=== PATIENT | male | born 1940 | race Caucasian/White ===

== ENCOUNTER 2018-07-19 05:04 | Emergency (ER) | payer MEDICARE, BC, SELFPAY ==
--- NOTE | 2018-07-19 05:17 | DI.RAD.S_ITS ---
PROCEDURE: XR CHEST 1V INDICATIONS: chest pain TECHNIQUE: One view of the chest was acquired. COMPARISON: None. FINDINGS: Surgical changes and devices: Sternal wires are present. Lungs and pleura: There is increased pulmonary vascularity. Coarsened bibasilar and retrocardiac opacities are present. Mediastinum: Mediastinal contours appear normal. Heart size is normal. Bones and chest wall: No suspicious bony lesions. Overlying soft tissues appear unremarkable. IMPRESSION: Increased vascularity suggestive of edema. Increased appearance of coarsened bibasilar retrocardiac opacities are also noted. While this could represent focal edema, developing areas of airspace disease such as pneumonia cannot be excluded. They both enter discussed with Dr. Cordell Zapata on 07/19/18 at 9:30 a.m. Dictated by: Mary Lou Pimentel M.D. on 07/19/2018 at 9:27 Approved by: Mary Lou Pimentel M.D. on 07/19/2018 at 9:30
--- NOTE | 2018-07-19 05:18 | ED.CHESTPAIN ---
HPI - Chest Pain General Chief Complaint: Chest Pain Stated Complaint: Chest Pain, feels like heartburn Time Seen by Provider: 07/19/18 05:17 Source: patient Mode of arrival: ambulatory Limitations: no limitations History of Present Illness HPI narrative: Patient is an 78-year-old male with history of coronary artery disease triple bypass in 2004 hypertension hyperlipidemia presenting with chest discomfort. He said it woke him from his sleep he thought it was indigestion took some Geeta-[place] did not really help that he took 2 nitroglycerin and came to the emergency department. He said his pain has overall improved but still has some. He has no shortness of breath nausea not diaphoretic. Pain was not radiating state in the nervous chest MD complaint: chest pain Onset (ago): minute(s) Duration: constant Onset: during rest Pain location: substernal Related Data Allergies Allergy/AdvReac Type Severity Reaction Status Date / Time morphine Allergy Unknown Verified 07/19/18 05:24 oxycodone Allergy Verified 07/19/18 05:25 Review of Systems Review of Systems GENERAL: Denies chills, fatigue, malaise, fever, sweats, travel HEENT: Denies sinus pain, ear pain, sore throat, difficulty swallowing, neck pain RESPIRATORY: Denies dyspnea, cough, wheezing, hemoptysis, sputum. CARDIOVASCULAR: See HPI GASTROINTESTINAL: Denies nausea, vomiting, abdominal pain, diarrhea, constipation, melena. : Denies dysuria, frequency, incontinence, hematuria, urinary retention, flank pain. MUSCULOSKELETAL: Denies weakness, joint pain, or bony pain SKIN: No rash, no erythema, no pruritus NEUROLOGIC: Denies weakness, dizziness, headache, numbness, change in speech, confusion PSYCHIATRIC: No concerning psychosocial issues. 12 point review of systems is negative except for those stated above and HPI [facility]LY [facility] Medical History (Updated 07/19/18 @ 06:25 by Hawa Araiza DO) Coronary artery disease (Acute) Hyperlipidemia (Acute) Hypertension (Acute) Surgical History (Updated 07/19/18 @ 05:20 by Hawa Araiza DO) S/P CABG x 3 (Acute) Social History Smoking Status: Former smoker Social History Smoking Status: Former smoker Exam Initial Vital Signs Initial Vital Signs: Vital Signs Pulse Rate 68 07/19/18 05:19 Respiratory Rate 20 07/19/18 05:19 Blood Pressure 149/67 H 07/19/18 05:19 Pulse Oximetry 100 07/19/18 05:19 GENERAL: Alert well-appearing elderly male actually appears younger than stated age HEENT: Head atraumatic,EOMI, pupils reactive, face symmetric, DX CARDIOVASCULAR: Regular rate and rhythm without murmurs, rubs or gallops. Scar noted on sternum RESPIRATORY: Breath sounds equal bilaterally, no wheezes rales or rhonchi. ABDOMEN: Soft, nontender. Normoactive bowel sounds all 4 quadrants. No guarding or rebound. EXTREMITIES: Normal range of motion, no clubbing or edema. Neurovascularly intact NEUROLOGICAL: Alert and oriented x4.Normal gait and speech. Cranial nerves II through XII grossly intact. SKIN: Warm, dry, no laceration, no petechiae, no rashes or lesions. Course Orders Ordered: ED Orders 07/19/18 05:10 B Type Natriuretic Peptide Stat Complete Blood Count AUTO DIFF Stat Comprehensive Metabolic Panel Stat Lipase Stat Partial Thromboplastin Time Stat Prothrombin Time INR Stat Troponin & CK Cardiac Panel Stat 07/19/18 05:17 XR chest 1V Stat EKG-12 Lead Stat 07/20/18 05:00 Hemoglobin and Hematocrit DAILY Sodium Chloride (Normal Saline 0.9%) 1,000 mls @ 150 mls/hr IV CONT WILFREDO Last Admin: 07/19/18 05:29 Dose: 150 mls/hr Heparin Sodium/Dextrose (Heparin Drip) 25,000 unit in 500 mls @ 20 mls/hr IV CONT WILFREDO; Protocol Last Admin: 07/19/18 05:35 Dose: 1,000 units/hr, 20 mls/hr Nitroglycerin (Nitrostat) 0.4 mg SL [id number] PRN PRN Reason: Chest Pain Last Admin: 07/19/18 06:29 Dose: 0.4 mg Discontinued Medications Aspirin (Aspirin Chew) 324 mg PO NOW ONE Stop: 07/19/18 05:18 Last Admin: 07/19/18 05:29 Dose: 324 mg Heparin Sodium (Porcine) (Heparin) 5,000 unit IV NOW ONE Stop: 07/19/18 05:30 Last Admin: 07/19/18 05:34 Dose: 5,000 unit Consultations Consultation #1: ER- I spoke with emergency room physician at [facility]. He said he would not activate laborer [place]. Recommends waiting for trop. Time: 05:33 Consultation #2: Dr. Morley at [facility] agrees patient needs to be transferred. EKGs remain unchanged. At this time recommended admitting to hospitalist. 6:[address] Morley updated on patient's troponin of positive 0.36 EKGs have been faxed to him. Time: 05:47 Consultation #3: Dr. Webb, hospitalist at [facility] graciously accepts patient. Still aware troponin is pending. Time: 06:14 Vital Signs - 8 hr 07/19/18 05:19 07/19/18 05:36 07/19/18 05:49 Pulse Rate 68 67 63 Respiratory Rate 20 13 18 Blood Pressure 149/67 H Blood Pressure [Right Arm] 126/55 L 118/53 L Pulse Oximetry 100 100 100 07/19/18 06:03 07/19/18 06:38 Pulse Rate 62 68 Respiratory Rate 18 18 Blood Pressure Blood Pressure [Right Arm] 124/55 L 123/94 H Pulse Oximetry 100 100 MDM - Chest Pain Lab Data Attestation: I reviewed the patient's lab results. Result diagrams: 07/19/18 05:10 07/19/18 05:10 Lab Results 07/19/18 07/19/18 07/19/18 Range/Units 05:10 05:10 05:10 WBC 6.4 (4.5-11.0) X10^3/uL RBC 4.03 L (4.5-5.9) X10^6/uL Hgb 12.5 L (13.5-17.5) g/dL Hct 36.9 L (41-53) % MCV 91.6 (80-100) fL MCH 31.1 (26-34) PG MCHC 33.9 (30-36) % RDW 14.3 (11.6-14.8) % Plt Count 131 L (150-400) X10^3/uL Neut % (Auto) 50.9 (50-75) % Lymph % (Auto) 33.9 (25-40) % Calloway % (Auto) 9.8 (3-14) % Eos % (Auto) 4.8 H (2-4) % Baso % (Auto) 0.6 (0-2) % Neut # (Auto) 3300 (1219-4161) /uL Lymph # (Auto) 2200 (5276-8443) /uL Calloway # (Auto) 600 (0-900) /uL Eos # (Auto) 300 (0-450) /uL Baso # (Auto) 0 (0-100) /uL PT 10.1 (10.1-12.7) SECONDS INR 0.9 (0.9-1.3) APTT 27 (26.4-36.2) SECONDS Sodium 140 (137-145) mmol/L Potassium 4.5 (3.4-5.1) mmol/L Chloride 104 (98-107) mmol/L Carbon Dioxide 28 (22-32) mmol/L BUN 24 H (9-20) mg/dL Creatinine 1.00 (0.66-1.25) mg/dL Estimated GFR > 60.0 (>60) mL/min BUN/Creatinine Ratio 24.0 H (6-22) Glucose 133 H (80-110) mg/dL Calcium 9.1 (8.4-10.2) mg/dL Total Bilirubin 0.2 (0.2-1.3) mg/dL AST 23 (17-59) IU/L ALT 23 (21-72) IU/L Alkaline Phosphatase 49 (38-126) U/L Total Creatine Kinase 113 (55-170) U/L CK-MB (CK-2) 1.99 (<2.37) ng/mL CK-MB (CK-2) Rel Index 1.8 (1.5-5.0) % Troponin I 0.306 H* (0.01-0.034) ng/mL B-Natriuretic Peptide 164 H (<100) Total Protein 7.2 (6.3-8.2) g/dL Albumin 4.3 (3.5-5.0) g/dL Globulin 2.9 (1.7-4.1) g/dL Albumin/Globulin Ratio 1.5 (1.0-2.8) Lipase 72 (23-300) U/L Imaging Data Chest x-ray: Attestation: I personally reviewed and interpreted this imaging study as follows: My impression: No acute cardiopulmonary process ECG Data Attestation: I personally reviewed and interpreted this ECG as follows: Prior ECG tracings: not available for review Interpretation: EKG 1. Possible ST elevation in lead [address] depression in V2 and V3 is right bundle branch block. No prior EKG 2. Normal sinus rhythm rate 69 right bundle-branch block persistent ST depression of 3 mm in V2 and V3 no changes in ST elevation in lead 3 and AVF EKG 3. Rate 63 no changes Core Measures AMI core measures followed: Yes MDM Narrative Medical decision making narrative: Patient remains chest pain-free while in the ED. Difficult to tell if the patient has ST depression is his baseline or new. All of his care was at [facility]. EKGs have not changed or evolved. Patient does not appear in acute distress and has since he has been in the ED. None the less due to patient's EKG changes and history he is placed on heparin drip. 6:35 a.m. patient complaining of soreness on his left side and ribs. He says it is not chest pain. He has tried moving around to make it better it does not seem to be getting better. He is given nitroglycerin which takes the soreness away. Critical Care Time Critical Care Time: Yes Total Critical Care Time: 45 Attestation: The high probability of a clinically significant, sudden or life threatening deterioration of the cardiovascular system(s) required my full and direct attention, intervention and personal management. The aggregate critical care time was 45 minutes. This time is in addition to time spent performing reported procedures but includes the following: x Data Review and interpretation x Patient assessment and monitoring of vital signs x Documentation x Medication orders and management Discharge Plan Departure Patient Disposition: [facility] Clinical Impression: Non-ST elevated myocardial infarction
[2018-07-19 05:19] VITALS: BP 149/67; PULSE 68; RESP 20; O2SAT 100; BMI 31.4
--- NOTE | 2018-07-19 05:22 | ED_ITS ---
HPI - Chest Pain General Chief Complaint: Chest Pain Stated Complaint: Chest Pain, feels like heartburn Time Seen by Provider: 07/19/18 05:17 Source: patient Mode of arrival: ambulatory Limitations: no limitations History of Present Illness HPI narrative: Patient is an 78-year-old male with history of coronary artery disease triple bypass in 2004 hypertension hyperlipidemia presenting with chest discomfort. He said it woke him from his sleep he thought it was indigestion took some Geeta-[place] did not really help that he took 2 nitroglycerin and came to the emergency department. He said his pain has overall improved but still has some. He has no shortness of breath nausea not diaphoretic. Pain was not radiating state in the nervous chest MD complaint: chest pain Onset (ago): minute(s) Duration: constant Onset: during rest Pain location: substernal Related Data Allergies Allergy/AdvReac Type Severity Reaction Status Date / Time morphine Allergy Unknown Verified 07/19/18 05:24 oxycodone Allergy Verified 07/19/18 05:25 Review of Systems Review of Systems GENERAL: Denies chills, fatigue, malaise, fever, sweats, travel HEENT: Denies sinus pain, ear pain, sore throat, difficulty swallowing, neck pain RESPIRATORY: Denies dyspnea, cough, wheezing, hemoptysis, sputum. CARDIOVASCULAR: See HPI GASTROINTESTINAL: Denies nausea, vomiting, abdominal pain, diarrhea, constipation, melena. : Denies dysuria, frequency, incontinence, hematuria, urinary retention, flank pain. MUSCULOSKELETAL: Denies weakness, joint pain, or bony pain SKIN: No rash, no erythema, no pruritus NEUROLOGIC: Denies weakness, dizziness, headache, numbness, change in speech, confusion PSYCHIATRIC: No concerning psychosocial issues. 12 point review of systems is negative except for those stated above and HPI FORMERLY [facility] Medical History (Updated 07/19/18 @ 06:25 by Hawa Araiza DO) Coronary artery disease (Acute) Hyperlipidemia (Acute) Hypertension (Acute) Surgical History (Updated 07/19/18 @ 05:20 by Hawa Araiza DO) S/P CABG x 3 (Acute) Social History Smoking Status: Former smoker Social History Smoking Status: Former smoker Exam Initial Vital Signs Initial Vital Signs: Vital Signs Pulse Rate 68 07/19/18 05:19 Respiratory Rate 20 07/19/18 05:19 Blood Pressure 149/67 H 07/19/18 05:19 Pulse Oximetry 100 07/19/18 05:19 GENERAL: Alert well-appearing elderly male actually appears younger than stated age HEENT: Head atraumatic,EOMI, pupils reactive, face symmetric, DX CARDIOVASCULAR: Regular rate and rhythm without murmurs, rubs or gallops. Scar noted on sternum RESPIRATORY: Breath sounds equal bilaterally, no wheezes rales or rhonchi. ABDOMEN: Soft, nontender. Normoactive bowel sounds all 4 quadrants. No guarding or rebound. EXTREMITIES: Normal range of motion, no clubbing or edema. Neurovascularly intact NEUROLOGICAL: Alert and oriented x4.Normal gait and speech. Cranial nerves II through XII grossly intact. SKIN: Warm, dry, no laceration, no petechiae, no rashes or lesions. Course Orders Ordered: ED Orders 07/19/18 05:10 B Type Natriuretic Peptide Stat Complete Blood Count AUTO DIFF Stat Comprehensive Metabolic Panel Stat Lipase Stat Partial Thromboplastin Time Stat Prothrombin Time INR Stat Troponin & CK Cardiac Panel Stat 07/19/18 05:17 XR chest 1V Stat EKG-12 Lead Stat 07/20/18 05:00 Hemoglobin and Hematocrit DAILY Sodium Chloride (Normal Saline 0.9%) 1,000 mls @ 150 mls/hr IV CONT WILFREDO Last Admin: 07/19/18 05:29 Dose: 150 mls/hr Heparin Sodium/Dextrose (Heparin Drip) 25,000 unit in 500 mls @ 20 mls/hr IV CONT WILFREDO; Protocol Last Admin: 07/19/18 05:35 Dose: 1,000 units/hr, 20 mls/hr Nitroglycerin (Nitrostat) 0.4 mg SL [id number] PRN PRN Reason: Chest Pain Last Admin: 07/19/18 06:29 Dose: 0.4 mg Discontinued Medications Aspirin (Aspirin Chew) 324 mg PO NOW ONE Stop: 07/19/18 05:18 Last Admin: 07/19/18 05:29 Dose: 324 mg Heparin Sodium (Porcine) (Heparin) 5,000 unit IV NOW ONE Stop: 07/19/18 05:30 Last Admin: 07/19/18 05:34 Dose: 5,000 unit Consultations Consultation #1: ER- I spoke with emergency room physician at [facility]. He said he would not activate chemical laboratory technician. Recommends waiting for trop. Time: 05:33 Consultation #2: Dr. Morley at [facility] agrees patient needs to be transferred. EKGs remain unchanged. At this time recommended admitting to hospitalist. 6:[address] Morley updated on patient's troponin of positive 0.36 EKGs have been faxed to him. Time: 05:47 Consultation #3: Dr. Webb, hospitalist at [facility] graciously accepts patient. Still aware troponin is pending. Time: 06:14 Vital Signs - 8 hr 07/19/18 05:19 07/19/18 05:36 07/19/18 05:49 Pulse Rate 68 67 63 Respiratory Rate 20 13 18 Blood Pressure 149/67 H Blood Pressure [Right Arm] 126/55 L 118/53 L Pulse Oximetry 100 100 100 07/19/18 06:03 07/19/18 06:38 Pulse Rate 62 68 Respiratory Rate 18 18 Blood Pressure Blood Pressure [Right Arm] 124/55 L 123/94 H Pulse Oximetry 100 100 MDM - Chest Pain Lab Data Attestation: I reviewed the patient's lab results. Result diagrams: 07/19/18 05:10 07/19/18 05:10 Lab Results 07/19/18 07/19/18 07/19/18 Range/Units 05:10 05:10 05:10 WBC 6.4 (4.5-11.0) X10^3/uL RBC 4.03 L (4.5-5.9) X10^6/uL Hgb 12.5 L (13.5-17.5) g/dL Hct 36.9 L (41-53) % MCV 91.6 (80-100) fL MCH 31.1 (26-34) PG MCHC 33.9 (30-36) % RDW 14.3 (11.6-14.8) % Plt Count 131 L (150-400) X10^3/uL Neut % (Auto) 50.9 (50-75) % Lymph % (Auto) 33.9 (25-40) % [place] % (Auto) 9.8 (3-14) % Eos % (Auto) 4.8 H (2-4) % Baso % (Auto) 0.6 (0-2) % Neut # (Auto) 3300 (6479-7379) /uL Lymph # (Auto) 2200 (0194-7980) /uL [place] # (Auto) 600 (0-900) /uL Eos # (Auto) 300 (0-450) /uL Baso # (Auto) 0 (0-100) /uL PT 10.1 (10.1-12.7) SECONDS INR 0.9 (0.9-1.3) APTT 27 (26.4-36.2) SECONDS Sodium 140 (137-145) mmol/L Potassium 4.5 (3.4-5.1) mmol/L Chloride 104 (98-107) mmol/L Carbon Dioxide 28 (22-32) mmol/L BUN 24 H (9-20) mg/dL Creatinine 1.00 (0.66-1.25) mg/dL Estimated GFR > 60.0 (>60) mL/min BUN/Creatinine Ratio 24.0 H (6-22) Glucose 133 H (80-110) mg/dL Calcium 9.1 (8.4-10.2) mg/dL Total Bilirubin 0.2 (0.2-1.3) mg/dL AST 23 (17-59) IU/L ALT 23 (21-72) IU/L Alkaline Phosphatase 49 (38-126) U/L Total Creatine Kinase 113 (55-170) U/L CK-MB (CK-2) 1.99 (<2.37) ng/mL CK-MB (CK-2) Rel Index 1.8 (1.5-5.0) % Troponin I 0.306 H* (0.01-0.034) ng/mL B-Natriuretic Peptide 164 H (<100) Total Protein 7.2 (6.3-8.2) g/dL Albumin 4.3 (3.5-5.0) g/dL Globulin 2.9 (1.7-4.1) g/dL Albumin/Globulin Ratio 1.5 (1.0-2.8) Lipase 72 (23-300) U/L Imaging Data Chest x-ray: Attestation: I personally reviewed and interpreted this imaging study as follows: My impression: No acute cardiopulmonary process ECG Data Attestation: I personally reviewed and interpreted this ECG as follows: Prior ECG tracings: not available for review Interpretation: EKG 1. Possible ST elevation in lead [address] depression in V2 and V3 is right bundle branch block. No prior EKG 2. Normal sinus rhythm rate 69 right bundle-branch block persistent ST depression of 3 mm in V2 and V3 no changes in ST elevation in lead 3 and AVF EKG 3. Rate 63 no changes Core Measures AMI core measures followed: Yes MDM Narrative Medical decision making narrative: Patient remains chest pain-free while in the ED. Difficult to tell if the patient has ST depression is his baseline or new. All of his care was at [facility]. EKGs have not changed or evolved. Patient does not appear in acute distress and has since he has been in the ED. None the less due to patient's EKG changes and history he is placed on heparin drip. 6:35 a.m. patient complaining of soreness on his left side and ribs. He says it is not chest pain. He has tried moving around to make it better it does not seem to be getting better. He is given nitroglycerin which takes the soreness away. Critical Care Time Critical Care Time: Yes Total Critical Care Time: 45 Attestation: The high probability of a clinically significant, sudden or life threatening deterioration of the cardiovascular system(s) required my full and direct attention, intervention and personal management. The aggregate critical care time was 45 minutes. This time is in addition to time spent performing reported procedures but includes the following: x Data Review and interpretation x Patient assessment and monitoring of vital signs x Documentation x Medication orders and management Discharge Plan Departure Patient Disposition: [facility] Clinical Impression: Non-ST elevated myocardial infarction
[2018-07-19 05:28] LABS: INR 0.9 (0.9-1.3); Prothrombin Time 10.1 SECONDS (10.1-12.7)
[2018-07-19 05:29] LABS: Add Manual Diff / Slide Review NO; Basophils Absolute Auto 0 /uL (0-100); Basophils Percent Auto 0.6 % (0-2); Eosinophils Absolute Auto 300 /uL (0-450); Eosinophils Percent Auto 4.8 % (2-4); Hematocrit 36.9 % (41-53); Hemoglobin 12.5 g/dL (13.5-17.5); Lymphocytes Absolute Auto 2200 /uL (1100-4500); Lymphocytes Percent Auto 33.9 % (25-40); Mean Corpuscular HGB Conc 33.9 % (30-36); Mean Corpuscular Hemoglobin 31.1 PG (26-34); Mean Corpuscular Volume 91.6 fL (80-100); Monocytes Absolute Auto 600 /uL (0-900); Monocytes Percent Auto 9.8 % (3-14); Neutrophils Absolute Auto 3300 /uL (1500-7000); Neutrophils Percent Auto 50.9 % (50-75); Platelet Count 131 X10^3/uL (150-400); Red Blood Cell Count 4.03 X10^6/uL (4.5-5.9); Red Cell Distribution Width 14.3 % (11.6-14.8); White Blood Cell Count 6.4 X10^3/uL (4.5-11.0)
[2018-07-19] MEDS: ASPIRIN 81 MG TAB 324 MG PO (05:29)
[2018-07-19] MEDS: SODIUM CHLORIDE 0.9% 1,000 ML 150 ML IV (05:29)
[2018-07-19 05:30] LABS: PTT Partial Thromboplastin Tim 27 SECONDS (26.4-36.2)
[2018-07-19 05:32] LABS: Alanine Aminotransferase 23 IU/L (21-72); Albumin 4.3 g/dL (3.5-5.0); Albumin Globulin Ratio 1.5 (1.0-2.8); Alkaline Phosphatase 49 U/L (38-126); Aspartate Aminotransferase 23 IU/L (17-59); Bilirubin Total 0.2 mg/dL (0.2-1.3); Blood Urea Nitrogen 24 mg/dL (9-20); Calcium 9.1 mg/dL (8.4-10.2); Carbon Dioxide 28 mmol/L (22-32); Chloride 104 mmol/L (98-107); Creatine Kinase 113 U/L (55-170); Estimated Glomerular Filt Rate > 60.0 mL/min (>60); Globulin 2.9 g/dL (1.7-4.1); Glucose 133 mg/dL (80-110); HEMOLYSIS < 15 (0-50); Lipase 72 U/L (23-300); Potassium 4.5 mmol/L (3.4-5.1); Sodium 140 mmol/L (137-145); Total Protein 7.2 g/dL (6.3-8.2)
[2018-07-19] MEDS: HEPARIN 5,000 UNIT/ML VIAL 5000 UNIT IV (05:34)
[2018-07-19] MEDS: HEPARIN DRIP 25,000 UNIT/500 ML IV.SOLN 20 UNIT IV (05:35)
[2018-07-19 05:36] VITALS: BP 126/55; PULSE 67; RESP 13; O2SAT 100
[2018-07-19 05:47] LABS: CKMB % Relative Index 1.8 % (1.5-5.0); Creatine Kinase MB 1.99 ng/mL (<2.37)
[2018-07-19 05:49] VITALS: BP 118/53; PULSE 63; RESP 18; O2SAT 100
[2018-07-19 05:49] LABS: B Type Natriuretic Peptide 164 (<100)
[2018-07-19 06:03] VITALS: BP 124/55; PULSE 62; RESP 18; O2SAT 100
[2018-07-19 06:18] LABS: Troponin I 0.306 ng/mL (0.01-0.034)
--- NOTE | 2018-07-19 06:20 | PC.NURSE ---
Manuel was immediately notified of troponin level.
[2018-07-19] MEDS: NITROGLYCERIN 0.4 MG SL TAB SL (06:29)
[2018-07-19 06:38] VITALS: BP 123/94; PULSE 68; RESP 18; O2SAT 100
[2018-07-19 07:31] VITALS: BP 120/54; PULSE 70; RESP 17; TEMP 36.3; O2SAT 16
== END 2018-07-19 07:15 | disposition short-term general hospital (02) ==
PROVIDERS: Emergency Provider Emergency Medicine
DX: I21.4 Non-ST elevation (NSTEMI) myocardial infarction (principal)
CPT/HCPCS: 36591; 71045; 80053; 82550; 82553; 83690; 83880; 84484; 85025; 85610; 85730; 93005; 93010; 96365; 96366; 96375; 99283; 99291; 99292; J1644

== ENCOUNTER → 2019-03-30 17:31 | Outpatient (CLI) | payer MEDICARE, BC, SELFPAY | PROVIDERS: Visit Provider Physician Assistant | DX: R30.0 Dysuria (principal) | CPT/HCPCS: 87077; 87086; 87186 ==

== ENCOUNTER → 2019-06-15 20:01 | Outpatient (CLI) | payer MEDICARE, BC, SELFPAY | PROVIDERS: Visit Provider Physician Assistant | DX: R10.9 Unspecified abdominal pain (principal) | CPT/HCPCS: 87086 ==

== ENCOUNTER 2019-11-18 21:58 | Emergency (ER) | payer MEDICARE, BC, SELFPAY ==
[2019-11-18 22:08] VITALS: BP 137/62; PULSE 82; RESP 15; TEMP 36.2; O2SAT 96; BMI 32.8
[2019-11-18] MEDS: LIDOCAINE 2% (UROJET) 5 ML GEL TOP (22:30)
[2019-11-18 23:08] LABS: WBC Urine None Seen (0-5/HPF)
[2019-11-18 23:17] LABS: Appearance Urine UA TURBID; Bilirubin Urine UA NEGATIVE (NEGATIVE); Glucose Urine UA NEGATIVE (Negative); Ketones Urine UA NEGATIVE (NEGATIVE); Leukocyte Esterase Urine UA NEGATIVE (NEGATIVE); Nitrite Urine UA NEGATIVE (Negative); Occult Blood Urine UA 3+ (Negative); Protein Urine UA 3+ (Negative); Specific Gravity Urine UA 1.015 (1.000-1.035); Urobilinogen Urine UA 0.2 E.U./dL (0.2)
[2019-11-18 23:19] LABS: Color Urine UA RED; RBC Urine >100/HPF (0-5/HPF)
[2019-11-18 23:21] LABS: Bacteria Urine Moderate (10-30)
[2019-11-18 23:25] LABS: Culture Indicated Urine Specimen Cultured
--- NOTE | 2019-11-18 23:40 | PC.NURSE ---
Gardner cath drained about 100ml initially. then stopped draining. Flushed with 60 ccs of sterile water and catheter began draining again. no clots visible.
[2019-11-19 00:05] VITALS: BP 134/65; PULSE 71; RESP 15; O2SAT 99
--- NOTE | 2019-11-19 06:52 | ED.MALEGU ---
HPI - Male Genitourinary General Chief complaint: Urogenital-Male Stated complaint: states unable to urinate Time Seen by Provider: 11/18/19 22:03 Source: patient Mode of arrival: Ambulatory Limitations: no limitations History of Present Illness HPI Narrative: 79-year-old male nonsmoker with history of urethral strictures and self cathing presents with a chief complaint of an inability to insert his urinary catheter. He has some suprapubic tenderness but denies any fever or chills. He denies nausea or vomiting. He is otherwise well and free of complaint MD Complaint: other Onset (ago): hour(s) Duration: constant Severity: mild Relieving factors: none Exacerbating factors: none Associated symptoms: Reports denies other symptoms Related Data Home Medications Medication Instructions Recorded Confirmed No Known Home Medications 06/15/19 06/15/19 Allergies Allergy/AdvReac Type Severity Reaction Status Date / Time morphine Allergy Unknown Verified 06/15/19 19:24 oxycodone Allergy Verified 06/15/19 19:24 Review of Systems Constitutional Constitutional: Denies chills, Denies fatigue, Denies fever(s), Denies frequent falls, Denies lethargy and Denies weakness Eyes Eyes: Denies change in vision, Denies eye discharge, Denies irritation and Denies loss of vision ENT Ears, Nose, Mouth, and Throat: Denies change in voice, Denies dizziness, Denies neck pain, Denies sore throat and Denies throat swelling Cardiovascular Cardiovascular: Denies chest pain, Denies irregular heart rhythm, Denies lightheadedness, Denies palpitations, Denies dyspnea, Denies dyspnea on exertion and Denies orthopnea Respiratory Respiratory: Denies cough, Denies dyspnea, Denies dyspnea on exertion and Denies wheezing Gastrointestinal Gastrointestinal: Denies abdominal pain, Denies change in bowel habits, Denies diarrhea, Denies nausea and Denies vomiting Genitourinary Comments: Urinary retention Musculoskeletal Musculoskeletal: Denies neck pain and Denies numbness Integumentary/Breasts Skin/Breast: Denies pruritus, Denies erythema, Denies rash and Denies wounds Neurologic Neurologic: Denies behavioral changes, Denies confusion, Denies dizziness, Denies frequent falls, Denies loss of vision, Denies numbness and Denies weakness Psychiatric Psychiatric: Denies anxiety, Denies behavioral changes, Denies confusion, Denies depression, Denies homicidal ideation and Denies suicidal ideation Endocrine Endocrine: Denies fatigue, Denies flushing and Denies palpitations Hematologic/Lymphatic Hematologic/Lymphatic: Denies easy bruising Allergic/Immunologic Allergic/Immunologic: Denies urticaria, Denies throat swelling and Denies wheezing Patient History Medical History Back pain (Acute) Back strain (Acute) Coronary artery disease (Acute) Hyperlipidemia (Acute) Hypertension (Acute) Surgical History S/P CABG x 3 (Acute) Social History Smoking Status: Former smoker Smoking Status: Former smoker alcohol intake frequency: 0-2 drinks per day Substance Use Type: does not use Exam Narrative Exam Narrative: GEN: AOx3 and in mild distress EYES: Pupils are equal, round, and reactive to light and accommodation. Extraoccular muscles are intact bilaterally. There is no subconjunctival hemorrhage or exudate. CHEST: Lungs are clear to auscultation bilaterally and free of wheezes, rales, or rhonchi. Heart rate is regular rhythm, there are no murmurs, clicks, rubs, or gallops. There is no chest wall tenderness. ABD: Abdomen is soft and mildly tender in the suprapubic region There is no guarding or rebound. Bowel sounds are normal in all 4 quadrants. There is no mass or organomegaly. EXT: Full painless ROM of all extremities with no loss of sensation or strength. SKIN: Warm, pink, and dry. No erythema or rash Initial Vital Signs Initial Vital Signs: Vital Signs Temperature 97.2 F L 11/18/19 22:08 Pulse Rate 82 11/18/19 22:08 Respiratory Rate 15 11/18/19 22:08 Blood Pressure 137/62 11/18/19 22:08 Pulse Oximetry 96 11/18/19 22:08 Course Course Course Narrative: Nursing placed urinary catheter, acute day, with some difficulty but eventual placement is successful. It is flushed and flows easily. Patient has complete resolution of symptoms Orders Ordered: ED Orders 11/18/19 23:05 Urinalysis and Microscopic Stat Urine Culture Stat Discontinued Medications Lidocaine HCl (Urojet) 5 ml TOP NOW ONE Stop: 11/18/19 22:11 Last Admin: 11/18/19 22:30 Dose: 5 ml Documented by: VIVIAN Vital Signs Vital signs: Vital Signs - 8 hr 11/19/19 00:05 Pulse Rate 71 Respiratory Rate 15 Blood Pressure 134/65 Pulse Oximetry 99 MDM - Male Genitourinary Lab Data Labs: Lab Results 11/18/19 Range/Units 23:05 Urine Color Red Urine Appearance Turbid Urine pH 7.0 (4.5-8.0) Ur Specific [place] 1.015 (1.000-1.035) Urine Protein 3+ H (Negative) Urine Glucose (UA) Negative (Negative) g/dL Urine Ketones Negative (NEGATIVE) Urine Occult Blood 3+ H (Negative) Urine Nitrate Negative (Negative) Urine Bilirubin Negative (NEGATIVE) Urine Urobilinogen 0.2 (0.2) E.U./dL Ur Leukocyte Esterase Negative (NEGATIVE) Urine RBC >100/hpf H (0-5/HPF) Urine WBC None seen (0-5/HPF) Urine Bacteria Moderate (10-30) H (None) Ur Culture Indicated? Specimen cultured Discharge Plan Departure Patient Disposition: Home Clinical Impression: Acute retention of urine Discharge Date/Time: 11/19/19 00:05 Instructions: DI for Urinary Retention in Men Activity Restrictions/Additional Instructions: *You have been diagnosed with [urinary retention, Gardner catheter problem] *What to do: *Take medications as directed *Follow up with your primary care provider in 2-3 days, call for an appointment. Let them know you were seen in the Emergency Department and that we ask that you be seen in follow up *Return to ER if you should have any new, worsening or concerning symptoms Prescriptions: No Action No Known Home Medications RF: 0
== END 2019-11-19 00:05 | disposition home or self-care (01) ==
PROVIDERS: Emergency Provider Emergency Medicine
DX: R33.8 Other retention of urine (principal)
CPT/HCPCS: 51701; 51798; 81001; 87077; 87086; 87147; 87186; 99284

== ENCOUNTER 2019-11-21 14:10 | Emergency (ER) | payer MEDICARE, BC, SELFPAY ==
[2019-11-21] VITALS (17 sets, daily range): BP systolic 145–189; BP diastolic 65–92; PULSE 81–103; RESP 0–31; TEMP 37.6–38.1; O2SAT 94–99; BMI 32.1
--- NOTE | 2019-11-21 14:45 | DI.RAD.S_ITS ---
PROCEDURE: XR CHEST 1V INDICATIONS: suspected sepsis TECHNIQUE: One view of the chest was acquired. COMPARISON: [facility], CR, XR CHEST 1V, 07/19/2018, 5:23. FINDINGS: Surgical changes and devices: Remote midline sternotomy. Lungs and pleura: Probable centrilobular emphysema. Lungs are clear. No pleural effusions or pneumothorax. Mediastinum: Mediastinal contours appear normal. Heart size is normal. Bones and chest wall: No suspicious bony lesions. Overlying soft tissues appear unremarkable. IMPRESSION: Probable centrilobular emphysema. No evidence of acute pulmonary process. Dictated by: Pankaj Crain M.D. on 11/21/2019 at 15:44 Approved by: Pankaj Crain M.D. on 11/21/2019 at 15:45
[2019-11-21 14:51] LABS: Add Manual Diff / Slide Review NO; Basophils Absolute Auto 0 /uL (0-100); Basophils Percent Auto 0.3 % (0-2); Eosinophils Absolute Auto 200 /uL (0-450); Eosinophils Percent Auto 1.4 % (2-4); Hematocrit 36.1 % (41-53); Hemoglobin 12.3 g/dL (13.5-17.5); Lymphocytes Absolute Auto 1900 /uL (1100-4500); Mean Corpuscular Hemoglobin 31.3 PG (26-34); Mean Corpuscular Volume 92.2 fL (80-100); Monocytes Absolute Auto 1200 /uL (0-900); Monocytes Percent Auto 9.5 % (3-14); Neutrophils Absolute Auto 9600 /uL (1500-7000); Neutrophils Percent Auto 73.8 % (50-75); Platelet Count 120 X10^3/uL (150-400); Red Blood Cell Count 3.92 X10^6/uL (4.5-5.9)
[2019-11-21] MEDS: SODIUM CHLORIDE 0.9% 1,000 ML 1000 ML IV (14:51)
[2019-11-21 14:59] LABS: INR 1.2 (0.9-1.3); Prothrombin Time 13.4 SECONDS (10.1-12.7)
[2019-11-21 15:02] LABS: Alanine Aminotransferase 17 IU/L (<50); Albumin 4.2 g/dL (3.5-5.0); Albumin Globulin Ratio 1.3 (1.0-2.8); Alkaline Phosphatase 64 U/L (38-126); Aspartate Aminotransferase 23 IU/L (17-59); BUN Creatinine Ratio 15.9 (6-22); Bilirubin Total 0.6 mg/dL (0.2-1.3); Blood Urea Nitrogen 21 mg/dL (9-20); Calcium 9.4 mg/dL (8.4-10.2); Carbon Dioxide 29 mmol/L (22-32); Chloride 99 mmol/L (98-107); Estimated Glomerular Filt Rate 52.1 mL/min (>60); Globulin 3.2 g/dL (1.7-4.1); Glucose 146 mg/dL (80-110); HEMOLYSIS < 15 (0-50); Lipase 36 U/L (23-300); PTT Partial Thromboplastin Tim 28 SECONDS (26.4-36.2); Potassium 4.2 mmol/L (3.4-5.1); Sodium 134 mmol/L (137-145); Total Protein 7.4 g/dL (6.3-8.2)
[2019-11-21 15:03] LABS: Lactate (Lactic Acid) 1.1 mmol/L (0.7-2.1)
--- NOTE | 2019-11-21 15:10 | PC.NURSE ---
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 On saturday he was not able to self cath without pain and burning. He came into the ED and had an indwelling yoo placed. Since then he has been having chills, fever, and cloudy urine. He was given a prescription for infection but has not started it yet.
[2019-11-21 15:30] LABS: Procalcitonin 0.07 ng/mL (<0.5)
[2019-11-21] MEDS: ACETAMINOPHEN 325 MG TABLET 650 MG PO (16:18)
[2019-11-21 16:50] LABS: RBC Urine 1-5/HPF (0-5/HPF); Squamous Epithelial Cell Urine 0-1 /HPF (0-5/HPF); WBC Urine 10-30/HPF (0-5/HPF)
[2019-11-21 16:51] LABS: Amorphous Sediment Urine 1+; Bacteria Urine Few (2-10); Culture Indicated Urine Specimen Cultured
[2019-11-21] MEDS: TRIMETH/SULFA 160/800 (DS) TABLET 1 TAB PO (17:10)
--- NOTE | 2019-11-21 19:37 | ED_ITS ---
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 He states that he was here few days ago, had urinary retention of over L and received a catheter. He states that since then he has had bladder pain, very cloudy urine, and fevers today of 99.6 at home. He denies any abnormal back pain or flank pain, denies any nausea or vomiting. States he is eating well. Denies any diarrhea. The patient had spoken with Dr Anderson and was given a prescription of ciprofloxacin to take before his Gardner catheter came out, however the patient has not started and states that he was supposed to started 1-2 days before the Gardner catheter comes out. He does not know when that is. Related Data Previous Rx's Medication Instructions Recorded ciprofloxacin HCl 500 mg tablet 500 mg PO BID #6 tab 11/19/19 sulfamethoxazole-trimethoprim 1 tab PO BID 7 Days #14 tab 11/21/19 [Bactrim DS] Allergies Allergy/AdvReac Type Severity Reaction Status Date / Time morphine Allergy Unknown Verified 11/21/19 14:43 oxycodone Allergy Verified 11/21/19 14:43 [facility] of Systems [facility] - Last Filed: 11/21/19 19:45> Review of Systems Narrative: GENERAL: See HPI HEENT: Denies sinus pain, ear pain, sore throat, difficulty swallowing, dizziness. RESPIRATORY: Denies dyspnea, cough, wheezing, hemoptysis, sputum. CARDIOVASCULAR: Denies chest pain, palpitations, orthopnea, edema, GASTROINTESTINAL: Denies nausea, vomiting, abdominal pain, diarrhea, constipation, melena. : See HPI MUSCULOSKELETAL: denies weakness, joint pain, or bony pain SKIN: Denies rash, skin lesions, or other NEUROLOGIC: Denies weakness, headache, numbness, change in speech, confusion, seizures, incoordination. PSYCHIATRIC: No concerning psychosocial issues. 12 point review of systems is negative except for those stated above Patient History <SHANNON Shepard - Last Filed: 11/21/19 19:45> Medical History Back pain (Acute) Back strain (Acute) Coronary artery disease (Acute) Hyperlipidemia (Acute) Hypertension (Acute) Surgical History S/P CABG x 3 (Acute) Social History Smoking Status: Former smoker Smoking Status: Former smoker alcohol intake frequency: 0-2 drinks per day Substance Use Type: does not use Exam <SHANNON Shepard - Last Filed: 11/21/19 19:45> Narrative Exam Narrative: GENERAL: This is a well-nourished, well-developed patient, in mild distress. HEAD: Atraumatic. Normocephalic. No temporal or scalp tenderness. EYES: Pupils equal round and reactive. Extraocular motions intact. No scleral icterus. No injection or drainage. ENT: Nose without bleeding, purulent drainage or septal hematoma. Slightly dry mucous membranes Airway patent. NECK: Trachea midline. No JVD or lymphadenopathy. Supple, nontender, no meningeal signs. CARDIOVASCULAR: Regular rate and rhythm RESPIRATORY: Clear to auscultation. Breath sounds equal bilaterally. No wheezes, rales, or rhonchi. No cough. No increased respiratory effort. No accessory muscle use. GASTROINTESTINAL: Abdomen soft, non-tender, nondistended. No hepato- splenomegaly, or palpable masses. No guarding. Active bowel sounds. Gardner catheter draining cloudy urine. EXTREMITIES: No clubbing, cyanosis, or edema. No joint tenderness, effusion, or edema noted. BACK: Nontender without deformity or crepitance. No flank tenderness. NEURO: AOx3. SKIN: No rash or erythema on visible skin Initial Vital Signs Initial Vital Signs: Vital Signs Temperature 100.6 F H 11/21/19 14:33 Pulse Rate 103 H 11/21/19 14:33 Respiratory Rate 22 11/21/19 14:33 Blood Pressure 145/67 H 11/21/19 14:33 Pulse Oximetry 98 11/21/19 14:33 <Hawa Araiza DO - Last Filed: 11/22/19 07:23> Initial Vital Signs Initial Vital Signs: Vital Signs Temperature 100.6 F H 11/21/19 14:33 Pulse Rate 103 H 11/21/19 14:33 Respiratory Rate 22 11/21/19 14:33 Blood Pressure 145/67 H 11/21/19 14:33 Pulse Oximetry 98 11/21/19 14:33 Scores <SHANNON Shepard - Last Filed: 11/21/19 19:45> GCS [place] coma scale eye opening: Spontaneous [place] coma scale verbal response: Orientated [place] coma scale motor response: Obey commands [place] coma scale total score: 15 Course <SHANNON Shepard - Last Filed: 11/21/19 19:45> Orders Ordered: Discontinued Medications Acetaminophen (Tylenol) 650 mg PO NOW ONE Stop: 11/21/19 15:31 Last Admin: 11/21/19 16:18 Dose: 650 mg Documented by: KAY Sodium Chloride (Normal Saline 0.9%) 1,000 mls @ 1,000 mls/hr IV BOLUS ONE Stop: 11/21/19 15:44 Last Infusion: 11/21/19 16:14 Dose: 0 mls/hr Documented by: Admin: 11/21/19 14:51 Dose: 1,000 mls/hr Documented by: NIA Trimethoprim/Sulfamethoxazole (Bactrim Ds) 1 tab PO NOW ONE Stop: 11/21/19 16:58 Last Admin: 11/21/19 17:10 Dose: 1 tab Documented by: KAY Vital Signs Vital signs: Vital Signs - 8 hr 11/21/19 14:33 11/21/19 14:54 11/21/19 15:00 Temperature 100.6 F H Pulse Rate 103 H 100 H 92 H Respiratory Rate 22 29 H Blood Pressure 145/67 H Pulse Oximetry 98 98 99 11/21/19 15:02 11/21/19 15:03 11/21/19 15:30 Temperature Pulse Rate 97 H 88 82 Respiratory Rate 31 H 31 H 23 Blood Pressure 154/68 H Pulse Oximetry 98 99 98 11/21/19 15:31 11/21/19 16:00 11/21/19 16:30 Temperature Pulse Rate 82 81 83 Respiratory Rate 16 28 H 2 L Blood Pressure 152/65 H 172/74 H 183/76 H Pulse Oximetry 99 97 97 11/21/19 17:00 11/21/19 17:30 11/21/19 17:31 Temperature Pulse Rate 82 84 82 Respiratory Rate 20 0 L 13 Blood Pressure 186/81 H 176/76 H Pulse Oximetry 96 94 94 11/21/19 17:58 11/21/19 18:00 11/21/19 18:01 Temperature 99.6 F Pulse Rate 84 82 Respiratory Rate 24 25 H Blood Pressure 189/82 H Pulse Oximetry 94 95 11/21/19 18:30 11/21/19 18:31 Temperature Pulse Rate 83 82 Respiratory Rate 21 26 H Blood Pressure 148/92 H Pulse Oximetry 95 95 <Hawa Araiza DO - Last Filed: 11/22/19 07:23> Orders Ordered: Discontinued Medications Acetaminophen (Tylenol) 650 mg PO NOW ONE Stop: 11/21/19 15:31 Last Admin: 11/21/19 16:18 Dose: 650 mg Documented by: KAY Sodium Chloride (Normal Saline 0.9%) 1,000 mls @ 1,000 mls/hr IV BOLUS ONE Stop: 11/21/19 15:44 Last Infusion: 11/21/19 16:14 Dose: 0 mls/hr Documented by: Admin: 11/21/19 14:51 Dose: 1,000 mls/hr Documented by: NIA Trimethoprim/Sulfamethoxazole (Bactrim Ds) 1 tab PO NOW ONE Stop: 11/21/19 16:58 Last Admin: 11/21/19 17:10 Dose: 1 tab Documented by: KAY Vital Signs Vital signs: Vital Signs - 8 hr 11/21/19 14:33 11/21/19 14:54 11/21/19 15:00 Temperature 100.6 F H Pulse Rate 103 H 100 H 92 H Respiratory Rate 22 29 H Blood Pressure 145/67 H Pulse Oximetry 98 98 99 11/21/19 15:02 11/21/19 15:03 11/21/19 15:30 Temperature Pulse Rate 97 H 88 82 Respiratory Rate 31 H 31 H 23 Blood Pressure 154/68 H Pulse Oximetry 98 99 98 11/21/19 15:31 11/21/19 16:00 11/21/19 16:30 Temperature Pulse Rate 82 81 83 Respiratory Rate 16 28 H 2 L Blood Pressure 152/65 H 172/74 H 183/76 H Pulse Oximetry 99 97 97 11/21/19 17:00 11/21/19 17:30 11/21/19 17:31 Temperature Pulse Rate 82 84 82 Respiratory Rate 20 0 L 13 Blood Pressure 186/81 H 176/76 H Pulse Oximetry 96 94 94 11/21/19 17:58 11/21/19 18:00 11/21/19 18:01 Temperature 99.6 F Pulse Rate 84 82 Respiratory Rate 24 25 H Blood Pressure 189/82 H Pulse Oximetry 94 95 11/21/19 18:30 11/21/19 18:31 Temperature Pulse Rate 83 82 Respiratory Rate 21 26 H Blood Pressure 148/92 H Pulse Oximetry 95 95 MDM - Male Genitourinary <KIAH Shepard- - Last Filed: 11/21/19 19:45> Lab Data Result diagrams: 11/21/19 14:41 11/21/19 14:41 Labs: Lab Results 11/21/19 11/21/19 11/21/19 Range/Units 14:41 14:41 14:41 WBC 13.0 H (4.5-11.0) X10^3/uL RBC 3.92 L (4.5-5.9) X10^6/uL Hgb 12.3 L (13.5-17.5) g/dL Hct 36.1 L (41-53) % MCV 92.2 (80-100) fL MCH 31.3 (26-34) PG MCHC 34.0 (30-36) % RDW 14.0 (11.6-14.8) % Plt Count 120 L (150-400) X10^3/uL Neut % (Auto) 73.8 (50-75) % Lymph % (Auto) 15.0 L (25-40) % [place] % (Auto) 9.5 (3-14) % Eos % (Auto) 1.4 L (2-4) % Baso % (Auto) 0.3 (0-2) % Neut # (Auto) 9600 H (5259-9934) /uL Lymph # (Auto) 1900 (7302-9260) /uL [place] # (Auto) 1200 H (0-900) /uL Eos # (Auto) 200 (0-450) /uL Baso # (Auto) 0 (0-100) /uL PT 13.4 H (10.1-12.7) SECONDS INR 1.2 (0.9-1.3) APTT 28 (26.4-36.2) SECONDS Sodium (137-145) mmol/L Potassium (3.4-5.1) mmol/L Chloride (98-107) mmol/L Carbon Dioxide (22-32) mmol/L BUN (9-20) mg/dL Creatinine (0.66-1.25) mg/dL Estimated GFR (>60) mL/min BUN/Creatinine Ratio (6-22) Glucose (80-110) mg/dL Lactate (0.7-2.1) mmol/L Calcium (8.4-10.2) mg/dL Total Bilirubin (0.2-1.3) mg/dL AST (17-59) IU/L ALT (<50) IU/L Alkaline Phosphatase (38-126) U/L Total Protein (6.3-8.2) g/dL Albumin (3.5-5.0) g/dL Globulin (1.7-4.1) g/dL Albumin/Globulin Ratio (1.0-2.8) Lipase (23-300) U/L Procalcitonin 0.07 (<0.5) ng/mL Urine RBC (0-5/HPF) Urine WBC (0-5/HPF) Ur Squamous Epith Cells (0-5/HPF) Amorphous Sediment Urine Bacteria (None) Ur Culture Indicated? 11/21/19 11/21/19 11/21/19 Range/Units 14:41 14:41 15:43 WBC (4.5-11.0) X10^3/uL RBC (4.5-5.9) X10^6/uL Hgb (13.5-17.5) g/dL Hct (41-53) % MCV (80-100) fL MCH (26-34) PG MCHC (30-36) % RDW (11.6-14.8) % Plt Count (150-400) X10^3/uL Neut % (Auto) (50-75) % Lymph % (Auto) (25-40) % [place] % (Auto) (3-14) % Eos % (Auto) (2-4) % Baso % (Auto) (0-2) % Neut # (Auto) (8412-2882) /uL Lymph # (Auto) (6406-0088) /uL [place] # (Auto) (0-900) /uL Eos # (Auto) (0-450) /uL Baso # (Auto) (0-100) /uL PT (10.1-12.7) SECONDS INR (0.9-1.3) APTT (26.4-36.2) SECONDS Sodium 134 L (137-145) mmol/L Potassium 4.2 (3.4-5.1) mmol/L Chloride 99 (98-107) mmol/L Carbon Dioxide 29 (22-32) mmol/L BUN 21 H (9-20) mg/dL Creatinine 1.32 H (0.66-1.25) mg/dL Estimated GFR 52.1 L (>60) mL/min BUN/Creatinine Ratio 15.9 (6-22) Glucose 146 H (80-110) mg/dL Lactate 1.1 (0.7-2.1) mmol/L Calcium 9.4 (8.4-10.2) mg/dL Total Bilirubin 0.6 (0.2-1.3) mg/dL AST 23 (17-59) IU/L ALT 17 (<50) IU/L Alkaline Phosphatase 64 (38-126) U/L Total Protein 7.4 (6.3-8.2) g/dL Albumin 4.2 (3.5-5.0) g/dL Globulin 3.2 (1.7-4.1) g/dL Albumin/Globulin Ratio 1.3 (1.0-2.8) Lipase 36 (23-300) U/L Procalcitonin (<0.5) ng/mL Urine RBC 1-5/hpf D (0-5/HPF) Urine WBC 10-30/hpf H (0-5/HPF) Ur Squamous Epith Cells 0-1 /hpf (0-5/HPF) Amorphous Sediment 1+ Urine Bacteria Few (2-10) H (None) Ur Culture Indicated? Specimen cultured Urine Dip Bedside Urine Glucose Negative Bedside Urine Bilirubin - Negative Bedside Urine Ketone - Negative Urine Specific Harvey 1.010 Bedside Urine Occult Blood + Bedside Urine pH 7.5 Bedside Urine Protein +/- 15 Bedside Urine Urobilinogen - Negative Bedside Urine Nitrite - Negative Bedside Urine Leukocytes ++ 125 Esterase Imaging Data Chest x-ray: Radiologist's Impression: [address] [place] [id number] XRay Report Signed Patient: Scot Hightower [facility]#: [id number] : 9Acct:[id number] Age/Sex: 79 / MDate of Service: 11/21/19 Loc: ED Accession Number: [id number] Procedure: XR chest 1V Ordering Provider: Davina Smith PROCEDURE: XR CHEST 1V INDICATIONS: suspected sepsis TECHNIQUE: One view of the chest was acquired. COMPARISON: [facility], , XR CHEST 1V, 07/19/2018, 5:23. FINDINGS: Surgical changes and devices: Remote midline sternotomy. Lungs and pleura: Probable centrilobular emphysema. Lungs are clear. No pleural effusions or pneumothorax. Mediastinum: Mediastinal contours appear normal. Heart size is normal. Bones and chest wall: No suspicious bony lesions. Overlying soft tissues appear unremarkable. IMPRESSION: Probable centrilobular emphysema. No evidence of acute pulmonary process. Dictated by: Pankaj Crain M.D. on 11/21/2019 at 15:44 Approved by: Pankaj Crain M.D. on 11/21/2019 at 15:45 ECG Data Attestation: I personally reviewed and interpreted this ECG as follows: MDM Narrative Medical decision making narrative: The patient is an 79-year-old male who presents with a chief complaint of ?I think I have a urinary tract infection from a catheter.He was noted to have a positive urine culture from his urinalysis done 2 days ago. Thus he likely had infection prior to insertion of the Gardner catheter. The patient does present febrile, which improved with Tylenol. Overall he feels well and nontoxic, is eating and drinking, denies any flank pain and states overall he feels well. His urine is concerning, with wbc's, bacteria. He has slight leukocytosis to 13, no elevated lactate, procalcitonin less than 0.5. I spoke with Dr. Araiza regarding the patient the possibility of removing his Gardner catheter, however given his difficult insertion, the fact that his urine culture was positiv from his urinalysis 2 days ago, will hold off on removing Gardner catheter at this point time. Patient received IV fluids, Tylenol, Bactrim throughout his stay in the emergency department. He tolerated the Bactrim well. I discussed at length the importance of following up with primary care provider given contact information at [facility] human resources benefits manager as he states his PCP is in [place]. Encouraged him to follow up with Dr. Anderson as well, to not start the ciprofloxacin while taking his Bactrim unless otherwise directed. Discussed pending urine culture, return precautions of any acute concerns, inability keep up with fluids, severe flank pain etcetera. Patient and state understanding return precautions as well as follow-up care, have no questions or concerns upon discharge. <Hawa Araiza, DO - Last Filed: 11/22/19 07:23> Lab Data Labs: Lab Results 11/21/19 11/21/19 11/21/19 Range/Units 14:41 14:41 14:41 WBC 13.0 H (4.5-11.0) X10^3/uL RBC 3.92 L (4.5-5.9) X10^6/uL Hgb 12.3 L (13.5-17.5) g/dL Hct 36.1 L (41-53) % MCV 92.2 (80-100) fL MCH 31.3 (26-34) PG MCHC 34.0 (30-36) % RDW 14.0 (11.6-14.8) % Plt Count 120 L (150-400) X10^3/uL Neut % (Auto) 73.8 (50-75) % Lymph % (Auto) 15.0 L (25-40) % [place] % (Auto) 9.5 (3-14) % Eos % (Auto) 1.4 L (2-4) % Baso % (Auto) 0.3 (0-2) % Neut # (Auto) 9600 H (9773-4598) /uL Lymph # (Auto) 1900 (2855-0532) /uL [place] # (Auto) 1200 H (0-900) /uL Eos # (Auto) 200 (0-450) /uL Baso # (Auto) 0 (0-100) /uL PT 13.4 H (10.1-12.7) SECONDS INR 1.2 (0.9-1.3) APTT 28 (26.4-36.2) SECONDS Sodium (137-145) mmol/L Potassium (3.4-5.1) mmol/L Chloride (98-107) mmol/L Carbon Dioxide (22-32) mmol/L BUN (9-20) mg/dL Creatinine (0.66-1.25) mg/dL Estimated GFR (>60) mL/min BUN/Creatinine Ratio (6-22) Glucose (80-110) mg/dL Lactate (0.7-2.1) mmol/L Calcium (8.4-10.2) mg/dL Total Bilirubin (0.2-1.3) mg/dL AST (17-59) IU/L ALT (<50) IU/L Alkaline Phosphatase (38-126) U/L Total Protein (6.3-8.2) g/dL Albumin (3.5-5.0) g/dL Globulin (1.7-4.1) g/dL Albumin/Globulin Ratio (1.0-2.8) Lipase (23-300) U/L Procalcitonin 0.07 (<0.5) ng/mL Urine RBC (0-5/HPF) Urine WBC (0-5/HPF) Ur Squamous Epith Cells (0-5/HPF) Amorphous Sediment Urine Bacteria (None) Ur Culture Indicated? 11/21/19 11/21/19 11/21/19 Range/Units 14:41 14:41 15:43 WBC (4.5-11.0) X10^3/uL RBC (4.5-5.9) X10^6/uL Hgb (13.5-17.5) g/dL Hct (41-53) % MCV (80-100) fL MCH (26-34) PG MCHC (30-36) % RDW (11.6-14.8) % Plt Count (150-400) X10^3/uL Neut % (Auto) (50-75) % Lymph % (Auto) (25-40) % [place] % (Auto) (3-14) % Eos % (Auto) (2-4) % Baso % (Auto) (0-2) % Neut # (Auto) (5559-8418) /uL Lymph # (Auto) (9999-6991) /uL [place] # (Auto) (0-900) /uL Eos # (Auto) (0-450) /uL Baso # (Auto) (0-100) /uL PT (10.1-12.7) SECONDS INR (0.9-1.3) APTT (26.4-36.2) SECONDS Sodium 134 L (137-145) mmol/L Potassium 4.2 (3.4-5.1) mmol/L Chloride 99 (98-107) mmol/L Carbon Dioxide 29 (22-32) mmol/L BUN 21 H (9-20) mg/dL Creatinine 1.32 H (0.66-1.25) mg/dL Estimated GFR 52.1 L (>60) mL/min BUN/Creatinine Ratio 15.9 (6-22) Glucose 146 H (80-110) mg/dL Lactate 1.1 (0.7-2.1) mmol/L Calcium 9.4 (8.4-10.2) mg/dL Total Bilirubin 0.6 (0.2-1.3) mg/dL AST 23 (17-59) IU/L ALT 17 (<50) IU/L Alkaline Phosphatase 64 (38-126) U/L Total Protein 7.4 (6.3-8.2) g/dL Albumin 4.2 (3.5-5.0) g/dL Globulin 3.2 (1.7-4.1) g/dL Albumin/Globulin Ratio 1.3 (1.0-2.8) Lipase 36 (23-300) U/L Procalcitonin (<0.5) ng/mL Urine RBC 1-5/hpf D (0-5/HPF) Urine WBC 10-30/hpf H (0-5/HPF) Ur Squamous Epith Cells 0-1 /hpf (0-5/HPF) Amorphous Sediment 1+ Urine Bacteria Few (2-10) H (None) Ur Culture Indicated? Specimen cultured Urine Dip Bedside Urine Glucose Negative Bedside Urine Bilirubin - Negative Bedside Urine Ketone - Negative Urine Specific Harvey 1.010 Bedside Urine Occult Blood + Bedside Urine pH 7.5 Bedside Urine Protein +/- 15 Bedside Urine Urobilinogen - Negative Bedside Urine Nitrite - Negative Bedside Urine Leukocytes ++ 125 Esterase Discharge Plan Departure Patient Disposition: Home Clinical Impression: Urinary tract infection Qualifiers: Urinary tract infection type: catheter-associated UTI Indwelling urinary catheter type: indwelling urethral catheter Encounter type: initial encounter Qualified Code(s): T83.511A - Infection and inflammatory reaction due to indwelling urethral catheter, initial encounter Discharge Date/Time: 11/21/19 18:49 Instructions: How to Care for Your Gardner Catheter -- Male, DI for Urinary Tract Infection (UTI), DI for Urinary Retention in Men Activity Restrictions/Additional Instructions: Thank you for trusting us with your care today. I am sorry your feeling poorly and wish you a speedy recovery I sent a prescription of Bactrim to [facility]. Please take this with a probiotic or yogurt. Please continue Tylenol as needed for fever and/or discomfort Please come back to the emergency department for any acute concerns. As discussed please monitor for inability keep down food or fluids, severe back pain etcetera as this could be sign of worsening infection. Please follow-up with primary care provider. I have given contact information [facility] human resources benefits manager who can help you identify PCP accepting new patients and your insurance. Please also follow-up with Urology. Prescriptions: New sulfamethoxazole-trimethoprim [Bactrim DS] 800-160 mg tablet 1 tab PO BID 7 Days Qty: 14 RF: 0 No Action ciprofloxacin HCl [Cipro] 500 mg tablet 500 mg PO BID Qty: 6 RF: 0 Referrals: [facility] [Outside] Elizabeth Anderson MD [Physician] - <Hawa Araiza DO - Last Filed: 11/22/19 07:23> [facility] Attestation: I was immediately available in the department for consultation. Documentation has been reviewed. I agree with assessment and plan.
== END 2019-11-21 18:49 | disposition home or self-care (01) ==
PROVIDERS: Emergency Provider Nurse Practitioner Family
DX: T83.511A Infection and inflammatory reaction due to indwelling urethral catheter, initial encounter (principal); R33.8 Other retention of urine; I10 Essential (primary) hypertension
CPT/HCPCS: 36415; 71045; 80053; 81003; 81015; 83605; 83690; 84145; 85025; 85610; 85730; 87040; 87077; 87086; 87147; 87186; 93005; 93010; 96360; 99284

== ENCOUNTER 2019-12-01 15:06 | Emergency (ER) | payer MEDICARE, BC, SELFPAY ==
[2019-12-01 15:23] VITALS: BP 128/63; PULSE 88; RESP 18; TEMP 36.6; O2SAT 96; BMI 32.1
[2019-12-01 15:27] LABS: Appearance Urine UA TURBID; Bilirubin Urine UA 1+ (NEGATIVE); Color Urine UA RED; Glucose Urine UA NEGATIVE (Negative); Ketones Urine UA TRACE (NEGATIVE); Leukocyte Esterase Urine UA 1+ (NEGATIVE); Nitrite Urine UA POSITIVE (Negative); Occult Blood Urine UA 3+ (Negative); Protein Urine UA 3+ (Negative); pH Urine UA 6.5 (4.5-8.0)
[2019-12-01 15:43] LABS: RBC Urine 30-100/HPF (0-5/HPF); WBC Urine 10-30/HPF (0-5/HPF)
[2019-12-01 15:44] LABS: Bacteria Urine Many (>30); Culture Indicated Urine Specimen Cultured
[2019-12-01 15:46] LABS: Ictotest Urine Positive (Negative)
[2019-12-01 18:15] VITALS: BP 179/76; PULSE 76; TEMP 37; O2SAT 98
[2019-12-01] MEDS: LIDOCAINE 2% (UROJET) 5 ML GEL TOP (19:40)
[2019-12-01 19:44] LABS: Add Manual Diff / Slide Review NO; Basophils Absolute Auto 100 /uL (0-100); Basophils Percent Auto 0.8 % (0-2); Eosinophils Absolute Auto 700 /uL (0-450); Eosinophils Percent Auto 7.2 % (2-4); Hematocrit 35.8 % (41-53); Hemoglobin 11.9 g/dL (13.5-17.5); Lymphocytes Absolute Auto 2700 /uL (1100-4500); Mean Corpuscular HGB Conc 33.4 % (30-36); Mean Corpuscular Hemoglobin 30.6 PG (26-34); Mean Corpuscular Volume 91.7 fL (80-100); Monocytes Absolute Auto 500 /uL (0-900); Monocytes Percent Auto 5.9 % (3-14); Neutrophils Absolute Auto 5100 /uL (1500-7000); Neutrophils Percent Auto 56.1 % (50-75); Platelet Count 246 X10^3/uL (150-400); Red Cell Distribution Width 13.9 % (11.6-14.8)
[2019-12-01 19:57] LABS: Alanine Aminotransferase 19 IU/L (<50); Albumin 4.3 g/dL (3.5-5.0); Albumin Globulin Ratio 1.3 (1.0-2.8); Alkaline Phosphatase 58 U/L (38-126); Aspartate Aminotransferase 22 IU/L (17-59); Bilirubin Total 0.3 mg/dL (0.2-1.3); Blood Urea Nitrogen 30 mg/dL (9-20); Calcium 9.3 mg/dL (8.4-10.2); Carbon Dioxide 28 mmol/L (22-32); Chloride 103 mmol/L (98-107); Estimated Glomerular Filt Rate 55.4 mL/min (>60); Globulin 3.4 g/dL (1.7-4.1); Glucose 116 mg/dL (80-110); HEMOLYSIS < 15 (0-50); Magnesium 2.2 mg/dL (1.6-2.3); Potassium 4.6 mmol/L (3.4-5.1); Sodium 136 mmol/L (137-145); Total Protein 7.7 g/dL (6.3-8.2)
[2019-12-01] MEDS: CIPROFLOXACIN 500 MG TABLET PO (20:59)
--- NOTE | 2019-12-01 21:17 | ED.MALEGU ---
HPI - Male Genitourinary <KIAH Shepard-BC - Last Filed: 12/01/19 21:24> General Chief complaint: Urogenital-Male Stated complaint: states urinary infection Time Seen by Provider: 12/01/19 19:06 Source: patient and family Mode of arrival: Ambulatory Limitations: no limitations History of Present Illness HPI Narrative: The patient is an 79-year-old male former smoker with history of urinary tract infection who presents with a chief complaint of a urinary tract infection. He states that he recently had a Gardner catheter placed on 11/17, came back with a urinary tract infection and saw myself on 11/20. He then had his Gardner catheter removed for the walk-in clinic on 11/25/2019. Having dysuria, hematuria, passing blood clots. He denies any flank pain, fevers nausea vomiting or diarrhea. He is concerned about a urinary tract infection as his urine ?smells funny.Additionally he states it [place] to urinate. The patient does have a history of prostate cancer, uses self catheterization at home in order to keep his urethra open. Related Data Previous Rx's Medication Instructions Recorded ciprofloxacin HCl 500 mg tablet 500 mg PO BID #6 tab 11/19/19 ciprofloxacin HCl 500 mg PO BID #14 tab 12/01/19 Allergies Allergy/AdvReac Type Severity Reaction Status Date / Time morphine Allergy Unknown Verified 12/01/19 15:23 oxycodone Allergy Verified 12/01/19 15:23 Review of Systems <KIAH Shepard-BC - Last Filed: 12/01/19 21:24> Review of Systems Narrative: GENERAL: Denies chills, fatigue, malaise, fever, sweats. HEENT: Denies sinus pain, ear pain, sore throat, difficulty swallowing, dizziness. RESPIRATORY: Denies dyspnea, cough, wheezing, hemoptysis, sputum. CARDIOVASCULAR: Denies chest pain, palpitations, orthopnea, edema, GASTROINTESTINAL: Denies nausea, vomiting, abdominal pain, diarrhea, constipation, melena. : See HPI MUSCULOSKELETAL: denies weakness, joint pain, or bony pain SKIN: Denies rash, skin lesions, or other NEUROLOGIC: Denies weakness, headache, numbness, change in speech, confusion, seizures, incoordination. PSYCHIATRIC: No concerning psychosocial issues. 12 point review of systems is negative except for those stated above Patient History <SHANNON Shepard - Last Filed: 12/01/19 21:24> Medical History Back pain (Acute) Back strain (Acute) Coronary artery disease (Acute) Hyperlipidemia (Acute) Hypertension (Acute) Surgical History S/P CABG x 3 (Acute) Social History Smoking Status: Former smoker Smoking Status: Former smoker alcohol intake frequency: 0-2 drinks per day Substance Use Type: does not use Exam <SHANNON Shepard - Last Filed: 12/01/19 21:24> Narrative Exam Narrative: GENERAL: This is a well-nourished, well-developed patient, no acute distress HEAD: Atraumatic. Normocephalic. No temporal or scalp tenderness. EYES: Pupils equal round and reactive. Extraocular motions intact. No scleral icterus. No injection or drainage. ENT: Nose without bleeding, purulent drainage or septal hematoma. Wearing a mask. Airway patent. NECK: Trachea midline. No JVD or lymphadenopathy. Supple, nontender, no meningeal signs. CARDIOVASCULAR: Regular rate and rhyth RESPIRATORY: Clear to auscultation. Breath sounds equal bilaterally. No wheezes, rales, or rhonchi. No cough. No increased respiratory effort. No accessory muscle use. GASTROINTESTINAL: Abdomen soft, non-tender, nondistended. No hepato-splenomegaly, or palpable masses. No guarding. Active bowel sounds all 4 quadrants EXTREMITIES: No clubbing, cyanosis, or edema. No joint tenderness, effusion, or edema noted. BACK: Nontender without deformity or crepitance. No flank tenderness. NEURO: AOx3. SKIN: No rash or erythema on visible skin Initial Vital Signs Initial Vital Signs: Vital Signs Temperature 97.8 F 12/01/19 15:23 Pulse Rate 88 12/01/19 15:23 Respiratory Rate 18 12/01/19 15:23 Blood Pressure 128/63 12/01/19 15:23 Pulse Oximetry 96 12/01/19 15:23 <Tulio Lino MD - Last Filed: 12/02/19 04:12> Initial Vital Signs Initial Vital Signs: Vital Signs Temperature 97.8 F 12/01/19 15:23 Pulse Rate 88 12/01/19 15:23 Respiratory Rate 18 12/01/19 15:23 Blood Pressure 128/63 12/01/19 15:23 Pulse Oximetry 96 12/01/19 15:23 Scores <SHANNON Shepard - Last Filed: 12/01/19 21:24> GCS [place] coma scale eye opening: Spontaneous [place] coma scale verbal response: Orientated [place] coma scale motor response: Obey commands Joby coma scale total score: 15 Course <SHANNON Shepard - Last Filed: 12/01/19 21:24> Orders Ordered: ED Orders 12/01/19 19:40 Complete Blood Count AUTO DIFF Stat Comprehensive Metabolic Panel Stat Magnesium Stat Discontinued Medications Ciprofloxacin (Cipro) 500 mg PO NOW ONE Stop: 12/01/19 20:47 Last Admin: 12/01/19 20:59 Dose: 500 mg Documented by: TOSHIAARTIN Lidocaine HCl (Urojet) 5 ml TOP NOW ONE Stop: 12/01/19 19:38 Last Admin: 12/01/19 19:40 Dose: 5 ml Documented by: ODETTE Vital Signs Vital signs: Vital Signs - 8 hr 12/01/19 21:20 Blood Pressure 148/64 H Pulse Oximetry 99 <Tulio Lino MD - Last Filed: 12/02/19 04:12> Orders Ordered: ED Orders 12/01/19 19:40 Complete Blood Count AUTO DIFF Stat Comprehensive Metabolic Panel Stat Magnesium Stat Discontinued Medications Ciprofloxacin (Cipro) 500 mg PO NOW ONE Stop: 12/01/19 20:47 Last Admin: 12/01/19 20:59 Dose: 500 mg Documented by: RMARTIN Lidocaine HCl (Urojet) 5 ml TOP NOW ONE Stop: 12/01/19 19:38 Last Admin: 12/01/19 19:40 Dose: 5 ml Documented by: ODETTE Vital Signs Vital signs: Vital Signs - 8 hr 12/01/19 21:20 Blood Pressure 148/64 H Pulse Oximetry 99 MDM - Male Genitourinary <SHANNON Shepard - Last Filed: 12/01/19 21:24> Lab Data Result diagrams: 12/01/19 19:40 08/25/20 19:40 Labs: Lab Results 12/01/19 12/01/19 12/01/19 Range/Units 15:25 19:40 19:40 WBC 9.0 (4.5-11.0) X10^3/uL RBC 3.90 L (4.5-5.9) X10^6/uL Hgb 11.9 L (13.5-17.5) g/dL Hct 35.8 L (41-53) % MCV 91.7 (80-100) fL MCH 30.6 (26-34) PG MCHC 33.4 (30-36) % RDW 13.9 (11.6-14.8) % Plt Count 246 (150-400) X10^3/uL Neut % (Auto) 56.1 (50-75) % Lymph % (Auto) 30.0 (25-40) % [place] % (Auto) 5.9 (3-14) % Eos % (Auto) 7.2 H (2-4) % Baso % (Auto) 0.8 (0-2) % Neut # (Auto) 5100 (8286-6006) /uL Lymph # (Auto) 2700 (4635-0612) /uL [place] # (Auto) 500 (0-900) /uL Eos # (Auto) 700 H (0-450) /uL Baso # (Auto) 100 (0-100) /uL Sodium 136 L (137-145) mmol/L Potassium 4.6 (3.4-5.1) mmol/L Chloride 103 (98-107) mmol/L Carbon Dioxide 28 (22-32) mmol/L BUN 30 H (9-20) mg/dL Creatinine 1.25 (0.66-1.25) mg/dL Estimated GFR 55.4 L (>60) mL/min BUN/Creatinine Ratio 24.0 H (6-22) Glucose 116 H (80-110) mg/dL Calcium 9.3 (8.4-10.2) mg/dL Magnesium 2.2 (1.6-2.3) mg/dL Total Bilirubin 0.3 (0.2-1.3) mg/dL AST 22 (17-59) IU/L ALT 19 (<50) IU/L Alkaline Phosphatase 58 (38-126) U/L Total Protein 7.7 (6.3-8.2) g/dL Albumin 4.3 (3.5-5.0) g/dL Globulin 3.4 (1.7-4.1) g/dL Albumin/Globulin Ratio 1.3 (1.0-2.8) Urine Color Red Urine Appearance Turbid Urine pH 6.5 (4.5-8.0) Ur Specific [place] 1.010 (1.000-1.035) Urine Protein 3+ H (Negative) Urine Glucose (UA) Negative (Negative) g/dL Urine Ketones Trace H (NEGATIVE) Urine Occult Blood 3+ H (Negative) Urine Nitrate Positive (Negative) Urine Bilirubin 1+ H (NEGATIVE) Ur Bilirubin Confirm Positive H (Negative) Urine Urobilinogen 1.0 (0.2) E.U./dL Ur Leukocyte Esterase 1+ H (NEGATIVE) Urine RBC 30-100/hpf H (0-5/HPF) Urine WBC 10-30/hpf H (0-5/HPF) Urine Bacteria Many (>30) H (None) Ur Culture Indicated? Specimen cultured MDM Narrative Medical decision making narrative: The patient is an 79-year-old male who presents with a chief complaint of a UTI. His urine correlates, positive nitrates. Given his gross hematuria with blood clots, 3 way catheter was inserted and his bladder was flushed. He developed clear urine afterwards, with very slight pink tinge in no visible clots. Given his presentation, I will place him on Cipro. He has not been in any antibiotics since he was on Bactrim on 11/20. I discussed continuing probiotics or yogurt, following up with primary care provider as well as his urologist. Discussed coming back to ER for any acute concerns such as Gardner catheter not working, flank pain, high fevers etcetera. Patient have no questions or concerns upon discharge and state understanding of return precautions as well as follow-up care. The patient has appeared well and nontoxic throughout stay in the emergency department, is afebrile and requesting to discharge. <Tulio Lino MD - Last Filed: 12/02/19 04:12> Lab Data Labs: Lab Results 12/01/19 12/01/19 12/01/19 Range/Units 15:25 19:40 19:40 WBC 9.0 (4.5-11.0) X10^3/uL RBC 3.90 L (4.5-5.9) X10^6/uL Hgb 11.9 L (13.5-17.5) g/dL Hct 35.8 L (41-53) % MCV 91.7 (80-100) fL MCH 30.6 (26-34) PG MCHC 33.4 (30-36) % RDW 13.9 (11.6-14.8) % Plt Count 246 (150-400) X10^3/uL Neut % (Auto) 56.1 (50-75) % Lymph % (Auto) 30.0 (25-40) % [place] % (Auto) 5.9 (3-14) % Eos % (Auto) 7.2 H (2-4) % Baso % (Auto) 0.8 (0-2) % Neut # (Auto) 5100 (2382-1894) /uL Lymph # (Auto) 2700 (0095-7387) /uL [place] # (Auto) 500 (0-900) /uL Eos # (Auto) 700 H (0-450) /uL Baso # (Auto) 100 (0-100) /uL Sodium 136 L (137-145) mmol/L Potassium 4.6 (3.4-5.1) mmol/L Chloride 103 (98-107) mmol/L Carbon Dioxide 28 (22-32) mmol/L BUN 30 H (9-20) mg/dL Creatinine 1.25 (0.66-1.25) mg/dL Estimated GFR 55.4 L (>60) mL/min BUN/Creatinine Ratio 24.0 H (6-22) Glucose 116 H (80-110) mg/dL Calcium 9.3 (8.4-10.2) mg/dL Magnesium 2.2 (1.6-2.3) mg/dL Total Bilirubin 0.3 (0.2-1.3) mg/dL AST 22 (17-59) IU/L ALT 19 (<50) IU/L Alkaline Phosphatase 58 (38-126) U/L Total Protein 7.7 (6.3-8.2) g/dL Albumin 4.3 (3.5-5.0) g/dL Globulin 3.4 (1.7-4.1) g/dL Albumin/Globulin Ratio 1.3 (1.0-2.8) Urine Color Red Urine Appearance Turbid Urine pH 6.5 (4.5-8.0) Ur Specific [place] 1.010 (1.000-1.035) Urine Protein 3+ H (Negative) Urine Glucose (UA) Negative (Negative) g/dL Urine Ketones Trace H (NEGATIVE) Urine Occult Blood 3+ H (Negative) Urine Nitrate Positive (Negative) Urine Bilirubin 1+ H (NEGATIVE) Ur Bilirubin Confirm Positive H (Negative) Urine Urobilinogen 1.0 (0.2) E.U./dL Ur Leukocyte Esterase 1+ H (NEGATIVE) Urine RBC 30-100/hpf H (0-5/HPF) Urine WBC 10-30/hpf H (0-5/HPF) Urine Bacteria Many (>30) H (None) Ur Culture Indicated? Specimen cultured Discharge Plan Departure Patient Disposition: Home Clinical Impression: Urinary tract infection Qualifiers: Urinary tract infection type: site unspecified Hematuria presence: with hematuria Qualified Code(s): N39.0 - Urinary tract infection, site not specified Hematuria Qualifiers: Hematuria type: gross Qualified Code(s): R31.0 - Gross hematuria Discharge Date/Time: 12/01/19 21:35 Instructions: How to Care for Your Gardner Catheter -- Male, DI for Urinary Tract Infection (UTI), DI for Hematuria Activity Restrictions/Additional Instructions: Thank you for trusting us with your care today. I am sorry that you are feeling sick, and hope that you get better seen I sent a prescription of ciprofloxacin to [facility]. We will have a urine culture pending, so we need to change your antibiotics, we will call you Please take this with probiotic or yogurt. This antibiotic does carry a risk of issues with tendons, so if you start having tendon pain please follow-up. Please follow-up with primary care provider as well as urologist. I included contact information for the [facility] [place] health water resources project manager, who can help you identify new primary care provider. Come back to the emergency department for any acute concerns. Please monitor for severe flank pain, fever etcetera Prescriptions: New ciprofloxacin HCl 500 mg tablet 500 mg PO BID Qty: 14 RF: 0 No Action ciprofloxacin HCl [Cipro] 500 mg tablet 500 mg PO BID Qty: 6 RF: 0 Referrals: [facility] [Outside] <Tulio Lino MD - Last Filed: 12/02/19 04:12> Cosign ED Attending Cosignature Attestation: I was immediately available in the department for consultation. This documentation has been reviewed and I agree with assessment and plan. Supervised by Tulio Lino MD
[2019-12-01 21:20] VITALS: BP 148/64; O2SAT 99
== END 2019-12-01 21:35 | disposition home or self-care (01) ==
PROVIDERS: Emergency Medicine; Emergency Provider Nurse Practitioner Family
DX: N39.0 Urinary tract infection, site not specified (principal); R31.0 Gross hematuria
CPT/HCPCS: 51701; 80053; 81001; 83735; 85025; 87086; 99283; 99284

== ENCOUNTER 2019-12-02 10:37 | Emergency (ER) | payer MEDICARE, BC, SELFPAY ==
[2019-12-02 10:44] VITALS: BP 160/72; PULSE 81; RESP 19; TEMP 36.3; O2SAT 100; BMI 32.1
--- NOTE | 2019-12-02 11:20 | PC.NURSE ---
Patient at door asking for irrigation now. Pt in lots of pain. Okayed with Dr. Araiza. Hand irrigated with 100mL and got out 2 small clots and 1000mL dark fluid.
--- NOTE | 2019-12-02 11:24 | ED.MALEGU ---
HPI - Male Genitourinary <SHANNON Shepard - Last Filed: 12/02/19 19:14> General Chief complaint: Urogenital-Male Stated complaint: catheter plugged up/came in last night Time Seen by Provider: 12/02/19 11:09 Source: patient Mode of arrival: Ambulatory Limitations: no limitations History of Present Illness HPI Narrative: The patient is an 79-year-old male former smoker with history of prostate cancer who presents with a chief complaint of his catheter being plugged. He was here last night seen by myself for hematuria and urinary tract infection. A [address] catheter was inserted last night and his bladder was flushed out with 2 bags of CBI. He was started on ciprofloxacin, received a dose last night, has not picked up his prescription yet this morning. He is not flushed out his catheter. Related Data Previous Rx's Medication Instructions Recorded ciprofloxacin HCl 500 mg tablet 500 mg PO BID #6 tab 11/19/19 ciprofloxacin HCl 500 mg PO BID #14 tab 12/01/19 Allergies Allergy/AdvReac Type Severity Reaction Status Date / Time morphine Allergy Unknown Verified 12/02/19 11:45 oxycodone Allergy Verified 12/02/19 11:45 Review of Systems <SHANNON Shepard - Last Filed: 12/02/19 19:14> Review of Systems Narrative: GENERAL: Denies chills, fatigue, malaise, fever, sweats. HEENT: Denies sinus pain, ear pain, sore throat, difficulty swallowing, dizziness. RESPIRATORY: Denies dyspnea, cough, wheezing, hemoptysis, sputum. CARDIOVASCULAR: Denies chest pain, palpitations, orthopnea, edema, GASTROINTESTINAL: Denies nausea, vomiting, abdominal pain, diarrhea, constipation, melena. : See HPI MUSCULOSKELETAL: denies weakness, joint pain, or bony pain SKIN: Denies rash, skin lesions, or other NEUROLOGIC: Denies weakness, headache, numbness, change in speech, confusion, seizures, incoordination. PSYCHIATRIC: No concerning psychosocial issues. 12 point review of systems is negative except for those stated above Patient History <SHANNON Shepard - Last Filed: 12/02/19 19:14> Medical History Back pain (Acute) Back strain (Acute) Coronary artery disease (Acute) Hyperlipidemia (Acute) Hypertension (Acute) Surgical History S/P CABG x 3 (Acute) Social History Smoking Status: Former smoker Smoking Status: Former smoker alcohol intake frequency: 0-2 drinks per day Substance Use Type: does not use Exam <SHANNON Shepard - Last Filed: 12/02/19 19:14> Narrative Exam Narrative: GENERAL: This is a well-nourished, well-developed patient, in no acute distress HEAD: Atraumatic. Normocephalic. No temporal or scalp tenderness. EYES: Pupils equal round and reactive. Extraocular motions intact. No scleral icterus. No injection or drainage. ENT: Nose without bleeding, purulent drainage or septal hematoma. Wearing a mask. Airway patent. NECK: Trachea midline. No JVD or lymphadenopathy. Supple, nontender, no meningeal signs. CARDIOVASCULAR: Regular rate and rhythm RESPIRATORY: No cough. No increased respiratory effort. No accessory muscle use. GASTROINTESTINAL: Abdomen soft, non-tender, nondistended. No hepato-splenomegaly, or palpable masses. No guarding. Active bowel sounds all 4 quadrants. Gardner catheter in place draining blood-tinged urine. EXTREMITIES: No clubbing, cyanosis, or edema. No joint tenderness, effusion, or edema noted. BACK: Nontender without deformity or crepitance. No flank tenderness. NEURO: AOx3. SKIN: No rash or erythema. Initial Vital Signs Initial Vital Signs: Vital Signs Temperature 97.3 F L 12/02/19 10:44 Pulse Rate 81 12/02/19 10:44 Respiratory Rate 19 12/02/19 10:44 Blood Pressure 160/72 H 12/02/19 10:44 Pulse Oximetry 100 12/02/19 10:44 <Hawa Araiza DO - Last Filed: 12/03/19 10:22> Initial Vital Signs Initial Vital Signs: Vital Signs Temperature 97.3 F L 12/02/19 10:44 Pulse Rate 81 12/02/19 10:44 Respiratory Rate 19 12/02/19 10:44 Blood Pressure 160/72 H 12/02/19 10:44 Pulse Oximetry 100 12/02/19 10:44 Scores <SHANNON Shepard - Last Filed: 12/02/19 19:14> GCS [place] coma scale eye opening: Spontaneous [place] coma scale verbal response: Orientated [place] coma scale motor response: Obey commands [place] coma scale total score: 15 Course <SHANNON Shepard - Last Filed: 12/02/19 19:14> Orders Ordered: Discontinued Medications Lidocaine HCl (Urojet) 5 ml TOP NOW ONE Stop: 12/02/19 11:43 Last Admin: 12/02/19 11:45 Dose: 5 ml Documented by: [employer] Vital Signs Vital signs: Vital Signs - 8 hr 12/02/19 14:17 12/02/19 17:09 12/02/19 17:33 Pulse Rate 80 69 Blood Pressure 125/58 L 133/62 Pulse Oximetry 97 97 <Hawa Araiza DO - Last Filed: 12/03/19 10:22> Orders Ordered: Discontinued Medications Lidocaine HCl (Urojet) 5 ml TOP NOW ONE Stop: 12/02/19 11:43 Last Admin: 12/02/19 11:45 Dose: 5 ml Documented by: [employer] Vital Signs Vital signs: Vital Signs - 8 hr 12/02/19 14:17 12/02/19 17:09 12/02/19 17:33 Pulse Rate 80 69 Blood Pressure 125/58 L 133/62 Pulse Oximetry 97 97 MDM - Male Genitourinary <DEMETRIO Shepard - Last Filed: 12/02/19 19:14> MDM Narrative Medical decision making narrative: The patient is an 79-year-old male who presents with a chief complaint of. You seen here yesterday by myself, a 3 way catheters inserted, received CBI to home was clear urine. He was started on ciprofloxacin for urinary tract infection, edema nitrate positive urine bacteria and blood. His catheter plugged at home so he came to the emergency department this morning. His catheter was subsequently removed and a larger 3 way Gardner catheter was inserted for continued CBI. His initial Gardner catheter did flushed well with irrigation, but it was elected to replaced with a larger one since he had clotted off the smaller one. He denies any fevers nausea vomiting or diarrhea. He denies any systemic illness and appears well and nontoxic. He received further Gardner catheter flushed, 3 bags for total of 6 L. His urine transition to completely clear. I discussed at length continuing the antibiotics as prescribed yesterday, the importance of follow-up with primary care provider as well as urologist. Discussed at length coming back to the emergency department for any acute concerns such as catheter clotting often not urinating, patient does have supplies for 1 catheter flush. Patient and have no questions or concerns upon discharge and state understanding return precautions as well as follow-up care. Discharge Plan Departure Patient Disposition: Home Clinical Impression: Gardner catheter problem Qualifiers: Encounter type: initial encounter Qualified Code(s): T83.9XXA - Unspecified complication of genitourinary prosthetic device, implant and graft, initial encounter Discharge Date/Time: 12/02/19 17:36 Instructions: How to Care for Your Gardner Catheter -- Male, DI for Hematuria, DI for Urinary Retention in Men Activity Restrictions/Additional Instructions: Thank you for trusting us with your care today. As discussed, we have flushed out your bladder again. Please continue the antibiotics prescribed yesterday. Please come back to emergency department for any acute concerns such as urine not flowing etcetera Please follow-up with primary care provider as well as Urology. I would like you to be re-evaluated in the next 48 to 72 hours. Prescriptions: No Action ciprofloxacin HCl [Cipro] 500 mg tablet 500 mg PO BID Qty: 6 RF: 0 ciprofloxacin HCl 500 mg tablet 500 mg PO BID Qty: 14 RF: 0 Referrals: Chente Holland MD [Non-Staff] - <Hawa Araiza DO - Last Filed: 12/03/19 10:22> [facility] ED Attending Markieature Attestation: I was immediately available in the department for consultation. Documentation has been reviewed. I agree with assessment and plan.
[2019-12-02] MEDS: LIDOCAINE 2% (UROJET) 5 ML GEL TOP (11:45)
--- NOTE | 2019-12-02 13:33 | PC.NURSE ---
Second bag CBI started. Pt reported discomfort, flushed catheter, clots/blood out, then draining w/o issue. Informed pt to use call light if discomfort returns.
[2019-12-02 14:17] VITALS: BP 125/58; PULSE 80; O2SAT 97
[2019-12-02 17:09] VITALS: PULSE 69; O2SAT 97
[2019-12-02 17:33] VITALS: BP 133/62
== END 2019-12-02 17:36 | disposition home or self-care (01) ==
PROVIDERS: Emergency Provider Nurse Practitioner Family
DX: T83.9XXA Unspecified complication of genitourinary prosthetic device, implant and graft, initial encounter (principal)
CPT/HCPCS: 99282

== ENCOUNTER 2020-04-25 00:56 | Emergency (ER) | payer MEDICARE, BC, SELFPAY ==
[2020-04-25] VITALS (13 sets, daily range): BP systolic 105–153; BP diastolic 58–72; PULSE 61–69; RESP 13–24; TEMP 36.6; O2SAT 96–100; BMI 31.4
--- NOTE | 2020-04-25 01:00 | DI.RAD.S_ITS ---
PROCEDURE: XR CHEST 1V INDICATIONS: chest pain TECHNIQUE: One view of the chest was acquired. COMPARISON: [facility], , XR CHEST 1V, 11/21/2019, 15:07. FINDINGS: Surgical changes and devices: Remote midline sternotomy Lungs and pleura: Lungs are clear. No pleural effusions or pneumothorax. Mediastinum: Mediastinal contours appear normal. Heart size is normal. Bones and chest wall: No suspicious bony lesions. Overlying soft tissues appear unremarkable. IMPRESSION: No evidence acute pulmonary process. Comment: Final report is concordant with preliminary interpretation provided by [facility]. Dictated by: Pankaj Crain M.D. on 04/25/2020 at 8:39 Approved by: Pankaj Crain M.D. on 04/25/2020 at 8:41
--- NOTE | 2020-04-25 01:04 | ED.CHESTPAIN ---
HPI - Chest Pain General Chief Complaint: Chest Pain Stated Complaint: chest pain Time Seen by Provider: 04/25/20 01:00 Source: patient Mode of arrival: Ambulatory Limitations: no limitations History of Present Illness HPI narrative: 79-year-old male former smoker with extensive cardiac history including a bypass many years ago, and a recent LA 1 year ago with stent placement presents with his in the chief complaint of 9/10 anterior chest pain with radiation into his neck and left axilla that started at about 9:30 p.m. tonight. He denies any provocation but does state it seemed to get a bit better with some nitro he took at home. He is not dizzy nor weak or lightheaded but has been increasingly short of breath and fatigued over the past few days. He denies diaphoresis, nausea or vomiting. He denies any recent travel or injury. He has had no recent change in medications. MD complaint: chest pain Onset (ago): hour(s) Duration: constant Onset: during rest Pain location: substernal and left chest Severity: severe Severity scale (1-10): 9 Quality: sharp Pain radiation: LUE and neck Relieving factors: nitroglycerin Exacerbating factors: nothing Associated symptoms: dyspnea Treatments prior to arrival chest pain: aspirin Related Data Previous Rx's Medication Instructions Recorded ciprofloxacin HCl 500 mg tablet 500 mg PO BID #6 tab 11/19/19 ciprofloxacin HCl 500 mg PO BID #14 tab 12/01/19 Allergies Allergy/AdvReac Type Severity Reaction Status Date / Time morphine Allergy Unknown Verified 04/25/20 01:05 oxycodone Allergy Verified 04/25/20 01:05 Review of Systems Constitutional Constitutional: Denies chills, Denies fatigue, Denies fever(s), Denies frequent falls, Denies lethargy and Denies weakness Eyes Eyes: Denies change in vision, Denies eye discharge, Denies irritation and Denies loss of vision ENT Ears, Nose, Mouth, and Throat: Denies change in voice, Denies dizziness, Denies neck pain, Denies sore throat and Denies throat swelling Cardiovascular Cardiovascular: Reports chest pain, Denies irregular heart rhythm, Denies lightheadedness, Denies palpitations, Reports dyspnea, Reports dyspnea on exertion and Denies orthopnea Respiratory Respiratory: Denies cough, Reports dyspnea, Reports dyspnea on exertion and Denies wheezing Gastrointestinal Gastrointestinal: Denies abdominal pain, Denies change in bowel habits, Denies diarrhea, Denies nausea and Denies vomiting Musculoskeletal Musculoskeletal: Denies neck pain and Denies numbness Integumentary/Breasts Skin/Breast: Denies pruritus, Denies erythema, Denies rash and Denies wounds Neurologic Neurologic: Denies behavioral changes, Denies confusion, Denies dizziness, Denies frequent falls, Denies loss of vision, Denies numbness and Denies weakness Psychiatric Psychiatric: Denies anxiety, Denies behavioral changes, Denies confusion, Denies depression, Denies homicidal ideation and Denies suicidal ideation Endocrine Endocrine: Denies fatigue, Denies flushing and Denies palpitations Hematologic/Lymphatic Hematologic/Lymphatic: Denies easy bruising Allergic/Immunologic Allergic/Immunologic: Denies urticaria, Denies throat swelling and Denies wheezing Patient History Medical History (Updated 04/25/20 @ 02:58 by Cordell Zapata DO) Back pain Back strain Coronary artery disease Hyperlipidemia Hypertension Surgical History S/P CABG x 3 Social History Smoking Status: Former smoker Smoking Status: Former smoker alcohol intake frequency: 0-2 drinks per day Substance Use Type: does not use Exam Initial Vital Signs Initial Vital Signs: Vital Signs Temperature 97.9 F 04/25/20 00:59 Pulse Rate 63 04/25/20 00:59 Respiratory Rate 24 04/25/20 00:59 Blood Pressure 153/72 H 04/25/20 00:59 Pulse Oximetry 99 04/25/20 00:59 Const General: cooperative and well developed Nutritional Appearance: well nourished [facility] Head: normocephalic and atraumatic Ears: external ears normal and TM's normal bilaterally Nose: external nose normal and No nasal discharge Face and sinus: sinuses nontender, face symmetric, no sinus tenderness and No dry mucous membranes Mouth: oral mucosae normal and moist mucous membranes Teeth and gingiva: dentition normal Throat: tonsils normal and uvula midline Eyes General: appearance normal, both eyes and all related structures Eyelids: eyelids normal Conjunctivae: conjunctivae normal Sclera: sclerae normal Pupils: PERRL EOM: EOM intact bilaterally Neck Neck: normal visual inspection, trachea midline, No lymphadenopathy, No midline deformity and No JVD Lymphatic: No lymphedema Chest Chest: normal inspection of the chest Resp Effort & Inspection: normal respiratory effort, able to speak in complete sentences, no respiratory distress and no use of accessory muscles Auscultation: clear to auscultation bilaterally, no rales, no rhonchi and no wheezes Cardio Rate: regular rate Rhythm: regular rhythm Heart Sounds: no click, no gallops, no murmurs and no rubs Pulses: normal peripheral pulses Other: mid chest pain on palpation GI Inspection: non-distended Palpation: soft, no hepatosplenomegaly, No guarding, No pulsatile mass and No tender Auscultation: normal bowel sounds Back/Spine/Pelvis Back: No CVA tenderness Cervical Spine: cervical ROM normal and No pain with cervical ROM Thoracic/Lumbar Spine: thoracic and lumbar spine normal to inspection Skin General: no rashes or lesions noted, No jaundice and No petechiae Neuro General: patient alert, patient oriented x3, gait normal and no focal motor deficits Speech: speech normal Extrem General: full ROM, no clubbing, cyanosis or edema, no pedal edema and no calf tenderness Psych Appearance: well kempt Mental Status: mental status grossly normal Attitude: cooperative Thought Content: normal and suicidality Judgment: judgment good Course Orders Ordered: ED Orders 04/25/20 EKG-12 Lead Stat EKG-12 Lead Stat 04/25/20 01:00 XR chest 1V Stat Complete Blood Count AUTO DIFF Stat Comprehensive Metabolic Panel Stat Lipase Stat NT-proBNP (BNP-Adult 18+) Stat Partial Thromboplastin Time Stat Prothrombin Time INR Stat Troponin & CK Cardiac Panel Stat EKG-12 Lead Stat 04/25/20 01:03 COVID19 Stat Sodium Chloride (Normal Saline 0.9%) 1,000 mls @ 150 mls/hr IV CONT WILFREDO Last Admin: 04/25/20 01:13 Dose: 150 mls/hr Documented by: LENLE Heparin Sodium/Dextrose (Heparin Drip) 25,000 unit in 500 mls @ 20 mls/hr IV CONT WILFREDO; Protocol Last Admin: 04/25/20 02:31 Dose: 1,000 units/hr, 20 mls/hr Documented by: Discontinued Medications Aspirin (Aspirin 81 Mg Chew Tab) 324 mg PO NOW ONE Stop: 04/25/20 01:01 Last Admin: 04/25/20 01:14 Dose: 324 mg Documented by: NIA Heparin Sodium (Porcine) (Heparin 5,000 Unit/Ml Vial) 5,000 unit IV NOW ONE Stop: 04/25/20 02:01 Last Admin: 04/25/20 02:31 Dose: 5,000 unit Documented by: Nitroglycerin (Nitroglycerin 0.4 Mg Sl Tab) 0.4 mg SL [id number] PRN PRN Reason: Chest Pain Last Admin: 04/25/20 01:43 Dose: 0.4 mg Documented by: Admin: 04/25/20 01:41 Dose: 0.4 mg Documented by: Admin: 04/25/20 01:13 Dose: 0.4 mg Documented by: NIA Nitroglycerin (Nitroglycerin Oint 1 Inch/Gm Oint...G.) 0.5 inch TOP NOW ONE Stop: 04/25/20 02:47 Last Admin: 04/25/20 02:50 Dose: 0.5 inch Documented by: Reevaluation(s) Reevaluation #1: pain down to 3/10 after 2nd NG. No longer in arm. Still slightly in neck, but not near as much. Time: 01:42 Reevaluation #2: pain zero after 3rd Consultations Consultation #1: call to cardio at [facility] ([place] She is in agreement with plan to transfer, adminster heparin, admit to hospitalist Consultation #2: hospitalist (Denae) at [facility] happy to accept Vital Signs Vital signs: Vital Signs - 8 hr 04/25/20 00:59 04/25/20 01:06 04/25/20 01:30 Temperature 97.9 F Pulse Rate 63 62 63 Respiratory Rate 24 14 16 Blood Pressure 153/72 H 127/65 Pulse Oximetry 99 100 98 04/25/20 01:44 04/25/20 01:45 04/25/20 01:50 Temperature Pulse Rate 65 64 65 Respiratory Rate 14 15 19 Blood Pressure 130/63 105/58 L Pulse Oximetry 98 98 96 04/25/20 02:00 04/25/20 02:10 04/25/20 02:20 Temperature Pulse Rate 61 63 69 Respiratory Rate 13 15 18 Blood Pressure 128/63 144/69 H 130/59 L Pulse Oximetry 98 99 99 04/25/20 02:30 04/25/20 02:39 04/25/20 02:45 Temperature Pulse Rate 64 64 63 Respiratory Rate 16 18 16 Blood Pressure 151/70 H 147/71 H Pulse Oximetry 99 99 99 MDM - Chest Pain Lab Data Result diagrams: 04/25/20 01:00 04/25/20 01:00 Labs: Lab Results 04/25/20 04/25/20 04/25/20 Range/Units 01:00 01:00 01:00 WBC 8.2 (4.5-11.0) X10^3/uL RBC 4.24 L (4.5-5.9) X10^6/uL Hgb 13.0 L (13.5-17.5) g/dL Hct 38.3 L (41-53) % MCV 90.4 (80-100) fL MCH 30.6 (26-34) PG MCHC 33.8 (30-36) % RDW 14.7 (11.6-14.8) % Plt Count 130 L (150-400) X10^3/uL Neut % (Auto) Not Reportable Lymph % (Auto) Not Reportable [place] % (Auto) Not Reportable Eos % (Auto) Not Reportable Baso % (Auto) Not Reportable Lymph # (Auto) Not Reportable [place] # (Auto) Not Reportable Baso # (Auto) Not Reportable Total Counted 100 Seg Neutrophils % 28.0 L (38-70) % Lymphocytes % (Manual) 55.0 H (25-45) % Atypical Lymphs % 9.0 H ( - 0) % Monocytes % (Manual) 2.0 (2-11) % Eosinophils % (Manual) 4.0 (2-4) % Basophils % (Manual) 2.0 H (0-1) % Neutrophils # (Manual) 2296 L (9290-0501) /uL RBC Morphology Normal morphology PT 10.8 (10.1-12.7) SECONDS INR 0.9 (0.9-1.3) APTT 28 (26.4-36.2) SECONDS Sodium 138 (137-145) mmol/L Potassium 4.2 (3.4-5.1) mmol/L Chloride 103 (98-107) mmol/L Carbon Dioxide 31 (22-32) mmol/L BUN 23 H (9-20) mg/dL Creatinine 1.01 (0.66-1.25) mg/dL Estimated GFR > 60.0 (>60) mL/min BUN/Creatinine Ratio 22.8 H (6-22) Glucose 136 H (80-110) mg/dL Calcium 10.0 (8.4-10.2) mg/dL Total Bilirubin 0.2 (0.2-1.3) mg/dL AST 25 (17-59) IU/L ALT 17 (<50) IU/L Alkaline Phosphatase 51 (38-126) U/L Total Creatine Kinase 78 (55-170) U/L CK-MB (CK-2) TNP CK-MB (CK-2) Rel Index TNP Troponin I 0.342 H* (0.01-0.034) ng/mL NT-Pro-B Natriuret Pep 263 (<450) pg/mL Total Protein 7.2 (6.3-8.2) g/dL Albumin 4.3 (3.5-5.0) g/dL Globulin 2.9 (1.7-4.1) g/dL Albumin/Globulin Ratio 1.5 (1.0-2.8) Lipase 78 (23-300) U/L SARS-CoV-2 (PCR) (Negative) 04/25/20 Range/Units 01:03 WBC (4.5-11.0) X10^3/uL RBC (4.5-5.9) X10^6/uL Hgb (13.5-17.5) g/dL Hct (41-53) % MCV (80-100) fL MCH (26-34) PG MCHC (30-36) % RDW (11.6-14.8) % Plt Count (150-400) X10^3/uL Neut % (Auto) Lymph % (Auto) [place] % (Auto) Eos % (Auto) Baso % (Auto) Lymph # (Auto) [place] # (Auto) Baso # (Auto) Total Counted Seg Neutrophils % (38-70) % Lymphocytes % (Manual) (25-45) % Atypical Lymphs % ( - 0) % Monocytes % (Manual) (2-11) % Eosinophils % (Manual) (2-4) % Basophils % (Manual) (0-1) % Neutrophils # (Manual) (0649-5035) /uL RBC Morphology PT (10.1-12.7) SECONDS INR (0.9-1.3) APTT (26.4-36.2) SECONDS Sodium (137-145) mmol/L Potassium (3.4-5.1) mmol/L Chloride (98-107) mmol/L Carbon Dioxide (22-32) mmol/L BUN (9-20) mg/dL Creatinine (0.66-1.25) mg/dL Estimated GFR (>60) mL/min BUN/Creatinine Ratio (6-22) Glucose (80-110) mg/dL Calcium (8.4-10.2) mg/dL Total Bilirubin (0.2-1.3) mg/dL AST (17-59) IU/L ALT (<50) IU/L Alkaline Phosphatase (38-126) U/L Total Creatine Kinase (55-170) U/L CK-MB (CK-2) CK-MB (CK-2) Rel Index Troponin I (0.01-0.034) ng/mL NT-Pro-B Natriuret Pep (<450) pg/mL Total Protein (6.3-8.2) g/dL Albumin (3.5-5.0) g/dL Globulin (1.7-4.1) g/dL Albumin/Globulin Ratio (1.0-2.8) Lipase (23-300) U/L SARS-CoV-2 (PCR) Negative (Negative) ECG Data Attestation: I personally reviewed and interpreted this ECG as follows: Prior ECG tracings: available for review Interpretation: EKG #1: NSR rate 61. 1st degree block (AR 296). RBBB (QRS 154). No ST segment elevation or depression. No hyperacute T waves or T wave inversions. No ectopy. EKG #2,3,4 no meaningful change Critical Care Time Critical Care Time Critical Care Time: Yes Total Critical Care Time: 30 Attestation: The high probability of a clinically significant, sudden or life threatening deterioration of the [CV] system(s) required my full and direct attention, intervention and personal management. The aggregate critical care time was [30] minutes. This time is in addition to time spent performing reported procedures but includes the following: [x] Data Review and interpretation [x] Patient assessment and monitoring of vital signs [x] Documentation [x] Medication orders and management Discharge Plan Departure Patient Disposition: Xfer [facility] Clinical Impression: Acute non-ST elevation myocardial infarction (NSTEMI) Prescriptions: No Action ciprofloxacin HCl [Cipro] 500 mg tablet 500 mg PO BID Qty: 6 RF: 0 ciprofloxacin HCl 500 mg tablet 500 mg PO BID Qty: 14 RF: 0
[2020-04-25] MEDS: SODIUM CHLORIDE 0.9% 1,000 ML 150 ML IV (01:13)
[2020-04-25] MEDS: NITROGLYCERIN 0.4 MG SL TAB SL ×3 (01:13→01:43)
[2020-04-25] MEDS: ASPIRIN 81 MG CHEW TAB 324 MG PO (01:14)
[2020-04-25 01:21] LABS: Alanine Aminotransferase 17 IU/L (<50); Albumin 4.3 g/dL (3.5-5.0); Albumin Globulin Ratio 1.5 (1.0-2.8); Alkaline Phosphatase 51 U/L (38-126); Aspartate Aminotransferase 25 IU/L (17-59); BUN Creatinine Ratio 22.8 (6-22); Bilirubin Total 0.2 mg/dL (0.2-1.3); Blood Urea Nitrogen 23 mg/dL (9-20); Carbon Dioxide 31 mmol/L (22-32); Chloride 103 mmol/L (98-107); Creatine Kinase 78 U/L (55-170); Estimated Glomerular Filt Rate > 60.0 mL/min (>60); Globulin 2.9 g/dL (1.7-4.1); Glucose 136 mg/dL (80-110); HEMOLYSIS < 15 (0-50); Lipase 78 U/L (23-300); Potassium 4.2 mmol/L (3.4-5.1); Sodium 138 mmol/L (137-145); Total Protein 7.2 g/dL (6.3-8.2)
[2020-04-25 01:23] LABS: Hematocrit 38.3 % (41-53); Mean Corpuscular HGB Conc 33.8 % (30-36); Mean Corpuscular Hemoglobin 30.6 PG (26-34); Mean Corpuscular Volume 90.4 fL (80-100); Platelet Count 130 X10^3/uL (150-400); Red Blood Cell Count 4.24 X10^6/uL (4.5-5.9); Red Cell Distribution Width 14.7 % (11.6-14.8); White Blood Cell Count 8.2 X10^3/uL (4.5-11.0)
[2020-04-25 01:24] LABS: Add Manual Diff / Slide Review YES; INR 0.9 (0.9-1.3); Prothrombin Time 10.8 SECONDS (10.1-12.7)
[2020-04-25 01:25] LABS: COVID19 -Nasal RAPID Negative (Negative)
[2020-04-25 01:27] LABS: PTT Partial Thromboplastin Tim 28 SECONDS (26.4-36.2)
[2020-04-25 01:33] LABS: NT-proBNP (BNP-Adult 18+) 263 pg/mL (<450)
[2020-04-25 02:00] LABS: Troponin I 0.342 ng/mL (0.01-0.034)
[2020-04-25 02:22] LABS: Neutrophils Absolute Manual 2296 /uL (3000-5900); RBC Morphology Normal Morphology; Total Cells Counted 100
[2020-04-25] MEDS: HEPARIN DRIP 25,000 UNIT/500 ML IV.SOLN 20 UNIT IV (02:31)
[2020-04-25] MEDS: HEPARIN 5,000 UNIT/ML VIAL 5000 UNIT IV (02:31)
[2020-04-25] MEDS: NITROGLYCERIN OINT 1 INCH/GM OINT...G. 0.5 INCH TOP (02:50)
== END 2020-04-25 03:10 | disposition short-term general hospital (02) ==
PROVIDERS: Emergency Provider Emergency Medicine
DX: I21.4 Non-ST elevation (NSTEMI) myocardial infarction (principal); R06.00 Dyspnea, unspecified; I25.10 Atherosclerotic heart disease of native coronary artery without angina pectoris; E78.5 Hyperlipidemia, unspecified; I10 Essential (primary) hypertension; Z95.5 Presence of coronary angioplasty implant and graft; Z20.822 Contact with and (suspected) exposure to COVID-19
CPT/HCPCS: 36415; 71045; 80053; 82550; 83690; 83880; 84484; 85007; 85025; 85610; 85730; 87635; 93005; 93010; 96361; 96365; 96375; 99283; 99291; C9803; J1644

== ENCOUNTER → 2020-06-20 12:18 | Outpatient (CLI) | payer MEDICARE, BC, SELFPAY ==
[2020-06-20] MEDS: COVID-19 VACC, Ad26(JANSSEN)/PF 0.5 ML IM (12:25)
== END ==
PROVIDERS: Visit Provider Internal Medicine
DX: Z23 Encounter for immunization (principal)
CPT/HCPCS: 0031A; 91303

== ENCOUNTER 2020-06-21 12:15 | Emergency (ER) | payer MEDICARE, BC, SELFPAY ==
[2020-06-21] VITALS (22 sets, daily range): BP systolic 118–148; BP diastolic 55–84; PULSE 68–97; RESP 18–27; TEMP 36.2; O2SAT 23–100; BMI 31.9
--- NOTE | 2020-06-21 12:42 | DI.RAD.S_ITS ---
PROCEDURE: XR CHEST 1V INDICATIONS: chest pain TECHNIQUE: One view of the chest was acquired. COMPARISON: [facility], CR, XR CHEST 1V, 04/25/2020, 1:20. FINDINGS: Surgical changes and devices: Sternotomy. Lungs and pleura: Bibasilar scars and atelectasis. There is diffuse interstitial prominence bilaterally.. No pleural effusions or pneumothorax. Mediastinum: Mediastinal contours appear normal. Heart size is normal. Bones and chest wall: No suspicious bony lesions. Overlying soft tissues appear unremarkable. IMPRESSION: 1. No acute cardiopulmonary disease 2. Bibasilar scars and atelectasis. Dictated by: Oneal Jenkins M.D. on 06/21/2020 at 13:51 Approved by: Oneal Jenkins M.D. on 06/21/2020 at 13:52
[2020-06-21 13:33] LABS: Add Manual Diff / Slide Review NO; Basophils Absolute Auto 0 /uL (0-100); Basophils Percent Auto 0.5 % (0-2); Eosinophils Absolute Auto 800 /uL (0-450); Eosinophils Percent Auto 11.2 % (2-4); Hemoglobin 12.6 g/dL (13.5-17.5); Lymphocytes Absolute Auto 1400 /uL (1100-4500); Lymphocytes Percent Auto 19.7 % (25-40); Mean Corpuscular HGB Conc 33.9 % (30-36); Mean Corpuscular Hemoglobin 31.1 PG (26-34); Mean Corpuscular Volume 91.6 fL (80-100); Monocytes Absolute Auto 700 /uL (0-900); Monocytes Percent Auto 10.1 % (3-14); Neutrophils Absolute Auto 4200 /uL (1500-7000); Neutrophils Percent Auto 58.5 % (50-75); Platelet Count 125 X10^3/uL (150-400); Red Blood Cell Count 4.04 X10^6/uL (4.5-5.9); Red Cell Distribution Width 15.2 % (11.6-14.8); White Blood Cell Count 7.1 X10^3/uL (4.5-11.0)
[2020-06-21 13:41] LABS: INR 1.1 (0.9-1.3); Prothrombin Time 11.9 SECONDS (10.1-12.7)
[2020-06-21 13:44] LABS: Magnesium 1.9 mg/dL (1.6-2.3); PTT Partial Thromboplastin Tim 29 SECONDS (26.4-36.2)
[2020-06-21 13:46] LABS: Alanine Aminotransferase 41 IU/L (<50); Albumin 4.8 g/dL (3.5-5.0); Albumin Globulin Ratio 1.5 (1.0-2.8); Alkaline Phosphatase 99 U/L (38-126); Aspartate Aminotransferase 39 IU/L (17-59); BUN Creatinine Ratio 23.2 (6-22); Bilirubin Total 0.6 mg/dL (0.2-1.3); Blood Urea Nitrogen 26 mg/dL (9-20); Calcium 9.6 mg/dL (8.4-10.2); Carbon Dioxide 28 mmol/L (22-32); Chloride 99 mmol/L (98-107); Creatine Kinase 125 U/L (55-170); Estimated Glomerular Filt Rate > 60.0 mL/min (>60); Globulin 3.2 g/dL (1.7-4.1); Glucose 121 mg/dL (80-110); HEMOLYSIS < 15 (0-50); Lipase 63 U/L (23-300); Potassium 3.9 mmol/L (3.4-5.1); Sodium 135 mmol/L (137-145)
[2020-06-21 13:57] LABS: NT-proBNP (BNP-Adult 18+) 242 pg/mL (<450); Troponin I < 0.012 ng/mL (0.01-0.034)
[2020-06-21 14:22] LABS: CKMB % Relative Index 1.1 % (1.5-5.0); Creatine Kinase MB 1.41 ng/mL (<2.37)
--- NOTE | 2020-06-21 15:14 | ED.ABDPAIN ---
HPI - Abdominal Pain General Chief Complaint: Shortness of Breath/Dyspnea Stated Complaint: Stomach/Ankles/Feet Swelling, Sent From Dr Time Seen by Provider: 06/21/20 13:12 Source: patient Mode of arrival: Ambulatory Limitations: no limitations History of Present Illness HPI narrative: Patient is an 80-year-old male history of coronary artery disease multiple stents bypass congestive heart failure presenting today with increasing abdominal distension. He is having shortness of breath and orthopnea but seems to be relatively stable. He has been taking his Lasix in fact they said they increased his Lasix to 40 mg twice a day but he said he was actually urinating much more when he was only taking once a day he says he is not urinating as much. He denies any chest pain fever or cough. He says that his pants no longer fit and he has run out of holes in his belt. He denies any nausea or vomiting bowel movements are normal. MD complaint: abdominal pain Onset (ago): day(s) Related Data Previous Rx's Medication Instructions Recorded ciprofloxacin HCl 500 mg tablet 500 mg PO BID #6 tab 11/19/19 ciprofloxacin HCl 500 mg PO BID #14 tab 12/01/19 Allergies Allergy/AdvReac Type Severity Reaction Status Date / Time morphine Allergy Unknown Verified 06/21/20 12:41 oxycodone Allergy Verified 06/21/20 12:41 Review of Systems Review of Systems Narrative: ROS Unobtainable: All systems reviewed & are unremarkable except as noted in HPI and below Constitutional Constitutional: Denies chills, Denies fever(s), Denies lethargy and Denies weakness Eyes Eyes: Denies change in vision, Denies eye discharge, Denies irritation and Denies loss of vision ENT Ears, Nose, Mouth, and Throat: Denies change in voice, Denies neck pain and Denies sore throat Cardiovascular Cardiovascular: Denies chest pain, Denies irregular heart rhythm, Denies lightheadedness, Denies palpitations, Denies dyspnea, Denies dyspnea on exertion and Denies orthopnea Respiratory Respiratory: Denies cough, Denies dyspnea, Denies dyspnea on exertion and Denies wheezing Gastrointestinal Gastrointestinal: Reports as per HPI, Denies abdominal pain, Denies constipation, Denies cramping, Denies excessive flatus, Denies loose stools and Denies nausea Comments: Bowel movement today Genitourinary Genitourinary: Reports urinary frequency (History of BPH) Genitourinary: Reports urinary frequency (History of BPH) Musculoskeletal Musculoskeletal: Denies back pain, Denies myalgias and Denies neck pain Integumentary/Breasts Skin/Breast: Denies pruritus, Denies erythema, Denies rash and Denies wounds Neurologic Neurologic: Denies loss of vision and Denies weakness Endocrine Endocrine: Denies palpitations Allergic/Immunologic Allergic/Immunologic: Denies wheezing Patient History Medical History Back pain Back strain Coronary artery disease Hyperlipidemia Hypertension Surgical History S/P CABG x 3 Social History Smoking Status: Former smoker Smoking Status: Former smoker alcohol intake frequency: 0-2 drinks per day Alcohol type: beer, wine and hard liquor Substance Use Type: does not use Exam Initial Vital Signs Initial Vital Signs: Vital Signs Temperature 97.1 F L 06/21/20 12:36 Pulse Rate 85 06/21/20 12:36 Respiratory Rate 24 06/21/20 12:36 Blood Pressure 137/65 06/21/20 12:36 Pulse Oximetry 99 06/21/20 12:36 GENERAL: Alert pleasant 80-year-old male and in no acute distress. HEENT: Head atraumatic,EOMI, pupils reactive, face symmetric, moist mucous membranes CARDIOVASCULAR: Regular rate and rhythm without murmurs, rubs or gallops. RESPIRATORY: Breath sounds equal bilaterally, no wheezes rales or rhonchi. ABDOMEN: Soft, mild distension no no guarding no rebound nontender normal bowel sounds EXTREMITIES: Normal range of motion, no clubbing or edema. Neurovascularly intact NEUROLOGICAL: Alert and oriented x4.Normal gait and speech. SKIN: Warm, dry, no laceration, no petechiae, no rashes or lesions. Course Orders Ordered: ED Orders 06/21/20 12:42 XR chest 1V Stat EKG-12 Lead Stat 06/21/20 13:25 BNP [NT-proBNP (BNP-Adult 18+)] Stat Complete Blood Count AUTO DIFF Stat Comprehensive Metabolic Panel Stat Lipase Stat Magnesium Stat Partial Thromboplastin Time Stat Prothrombin Time INR Stat Troponin & CK Cardiac Panel Stat 06/21/20 15:14 US abdomen limited Stat 06/21/20 16:13 XR abdomen min 2V Stat Vital Signs Vital signs: Vital Signs - 8 hr 06/21/20 12:36 06/21/20 13:29 06/21/20 13:30 Temperature 97.1 F L Pulse Rate 85 91 H 89 Respiratory Rate 24 21 22 Blood Pressure 137/65 126/84 Pulse Oximetry 99 99 99 06/21/20 13:46 06/21/20 14:00 06/21/20 14:15 Temperature Pulse Rate 86 93 H 88 Respiratory Rate 23 22 22 Blood Pressure 128/60 133/62 136/65 Pulse Oximetry 98 99 98 06/21/20 14:30 06/21/20 14:31 06/21/20 14:45 Temperature Pulse Rate 73 77 77 Respiratory Rate 24 26 H 20 Blood Pressure 142/70 H 135/61 Pulse Oximetry 98 82 L 96 06/21/20 15:00 06/21/20 15:15 06/21/20 15:30 Temperature Pulse Rate 75 74 73 Respiratory Rate 22 22 21 Blood Pressure 140/65 146/65 H 134/68 Pulse Oximetry 23 L 100 99 06/21/20 15:45 06/21/20 16:00 06/21/20 16:01 Temperature Pulse Rate 72 75 73 Respiratory Rate 23 27 H 21 Blood Pressure 118/55 L 148/71 H Pulse Oximetry 99 98 98 06/21/20 16:15 06/21/20 16:35 06/21/20 16:45 Temperature Pulse Rate 72 97 H 77 Respiratory Rate 27 H 21 Blood Pressure 137/66 123/66 Pulse Oximetry 98 76 L 98 06/21/20 17:00 06/21/20 17:15 06/21/20 17:30 Temperature Pulse Rate 74 74 68 Respiratory Rate 21 23 18 Blood Pressure 146/69 H 128/55 L Pulse Oximetry 99 99 97 06/21/20 17:31 Temperature Pulse Rate 69 Respiratory Rate 19 Blood Pressure 142/65 H Pulse Oximetry 98 MDM - Abdominal Pain Lab Data Attestation: I reviewed the patient's lab results. Result diagrams: 06/21/20 13:25 06/21/20 13:25 Labs: Lab Results 06/21/20 06/21/20 06/21/20 Range/Units 13:25 13:25 13:25 WBC 7.1 (4.5-11.0) X10^3/uL RBC 4.04 L (4.5-5.9) X10^6/uL Hgb 12.6 L (13.5-17.5) g/dL Hct 37.0 L (41-53) % MCV 91.6 (80-100) fL MCH 31.1 (26-34) PG MCHC 33.9 (30-36) % RDW 15.2 H (11.6-14.8) % Plt Count 125 L (150-400) X10^3/uL Neut % (Auto) 58.5 (50-75) % Lymph % (Auto) 19.7 L (25-40) % [place] % (Auto) 10.1 (3-14) % Eos % (Auto) 11.2 H (2-4) % Baso % (Auto) 0.5 (0-2) % Neut # (Auto) 4200 (3378-2316) /uL Lymph # (Auto) 1400 (7141-2109) /uL [place] # (Auto) 700 (0-900) /uL Eos # (Auto) 800 H (0-450) /uL Baso # (Auto) 0 (0-100) /uL PT 11.9 (10.1-12.7) SECONDS INR 1.1 (0.9-1.3) APTT 29 (26.4-36.2) SECONDS Sodium 135 L (137-145) mmol/L Potassium 3.9 (3.4-5.1) mmol/L Chloride 99 (98-107) mmol/L Carbon Dioxide 28 (22-32) mmol/L BUN 26 H (9-20) mg/dL Creatinine 1.12 (0.66-1.25) mg/dL Estimated GFR > 60.0 (>60) mL/min BUN/Creatinine Ratio 23.2 H (6-22) Glucose 121 H (80-110) mg/dL Calcium 9.6 (8.4-10.2) mg/dL Magnesium (1.6-2.3) mg/dL Total Bilirubin 0.6 (0.2-1.3) mg/dL AST 39 (17-59) IU/L ALT 41 (<50) IU/L Alkaline Phosphatase 99 (38-126) U/L Total Creatine Kinase 125 (55-170) U/L CK-MB (CK-2) 1.41 (<2.37) ng/mL CK-MB (CK-2) Rel Index 1.1 L (1.5-5.0) % Troponin I < 0.012 (0.01-0.034) ng/mL NT-Pro-B Natriuret Pep 242 (<450) pg/mL Total Protein 8.0 (6.3-8.2) g/dL Albumin 4.8 (3.5-5.0) g/dL Globulin 3.2 (1.7-4.1) g/dL Albumin/Globulin Ratio 1.5 (1.0-2.8) Lipase 63 (23-300) U/L 06/21/20 Range/Units 13:25 WBC (4.5-11.0) X10^3/uL RBC (4.5-5.9) X10^6/uL Hgb (13.5-17.5) g/dL Hct (41-53) % MCV (80-100) fL MCH (26-34) PG MCHC (30-36) % RDW (11.6-14.8) % Plt Count (150-400) X10^3/uL Neut % (Auto) (50-75) % Lymph % (Auto) (25-40) % [place] % (Auto) (3-14) % Eos % (Auto) (2-4) % Baso % (Auto) (0-2) % Neut # (Auto) (8730-0138) /uL Lymph # (Auto) (1207-2488) /uL [place] # (Auto) (0-900) /uL Eos # (Auto) (0-450) /uL Baso # (Auto) (0-100) /uL PT (10.1-12.7) SECONDS INR (0.9-1.3) APTT (26.4-36.2) SECONDS Sodium (137-145) mmol/L Potassium (3.4-5.1) mmol/L Chloride (98-107) mmol/L Carbon Dioxide (22-32) mmol/L BUN (9-20) mg/dL Creatinine (0.66-1.25) mg/dL Estimated GFR (>60) mL/min BUN/Creatinine Ratio (6-22) Glucose (80-110) mg/dL Calcium (8.4-10.2) mg/dL Magnesium 1.9 (1.6-2.3) mg/dL Total Bilirubin (0.2-1.3) mg/dL AST (17-59) IU/L ALT (<50) IU/L Alkaline Phosphatase (38-126) U/L Total Creatine Kinase (55-170) U/L CK-MB (CK-2) (<2.37) ng/mL CK-MB (CK-2) Rel Index (1.5-5.0) % Troponin I (0.01-0.034) ng/mL NT-Pro-B Natriuret Pep (<450) pg/mL Total Protein (6.3-8.2) g/dL Albumin (3.5-5.0) g/dL Globulin (1.7-4.1) g/dL Albumin/Globulin Ratio (1.0-2.8) Lipase (23-300) U/L Imaging Data Chest x-ray: Radiologist's Impression: PROCEDURE: XR CHEST 1V INDICATIONS: chest pain TECHNIQUE: One view of the chest was acquired. COMPARISON: [facility], , XR CHEST 1V, 04/25/2020, 1:20. FINDINGS: Surgical changes and devices: Sternotomy. Lungs and pleura: Bibasilar scars and atelectasis. There is diffuse interstitial prominence bilaterally.. No pleural effusions or pneumothorax. Mediastinum: Mediastinal contours appear normal. Heart size is normal. Bones and chest wall: No suspicious bony lesions. Overlying soft tissues appear unremarkable. IMPRESSION: 1. No acute cardiopulmonary disease 2. Bibasilar scars and atelectasis. Dictated by: Oneal Jenkins M.D. on 06/21/2020 at 13:51 Approved by: Oneal Jenkins M.D. on 06/21/2020 at 13:52 US - abdomen: Radiologist's Impression: PROCEDURE: US ABDOMEN LIMITED INDICATIONS: ?ASCITES TECHNIQUE: Real-time focused scanning was performed of the abdomen, with image documentation. COMPARISON: None. FINDINGS: No free fluid is identified. IMPRESSION: No free fluid. Dictated by: Mary Lou Pimentel M.D. on 06/21/2020 at 16:07 Abdominal x-ray: Radiologist's Impression: PROCEDURE: XR ABDOMEN MIN 2V INDICATIONS: ab distention TECHNIQUE: 2 views of the abdomen were acquired. COMPARISON: None. FINDINGS: Surgical changes and devices: None. Bowel: No pneumoperitoneum. The bowel gas pattern is specific. There are scattered minimally prominent loops of small bowel with prominent areas of colonic stool. Soft tissues: No masses; visualized solid organ contours appear normal in size. No suspicious abdominal calcifications. Bones: No suspicious bony abnormalities. IMPRESSION: Nonspecific gas pattern with scattered areas of mildly prominent bowel with significant stool overall consistent with constipation. Developing ileus/partial small bowel obstruction cannot be excluded. Dictated by: Mary Lou Pimentel M.D. on 06/21/2020 at 16:51 ECG Data Attestation: I personally reviewed and interpreted this ECG as follows: Prior ECG tracings: available for review Interpretation: EKG 1. Sinus rhythm with probable AV block Mobitz type 1 Wenckebach, rate 74 no large causes right bundle-branch block noted similar to previous EKG EKG 2. Sinus rhythm persistent AV block MDM Narrative Medical decision making narrative: The is here as recommendation from Cardiology provider and for ultrasound of his abdomen. He is quite convinced that his abdomen is full of his fluid. It sounds as though 2 weeks ago he did have signs and symptoms of congestive heart failure Lasix was increased from 20 mg to 40 ill mg he says since then his abdomen has been getting bigger. He has been having normal bowel movements and no nausea or vomiting. Ultrasound does not show any signs of fluid retention or ascites. He has no other signs of acute congestive heart failure. His BNP is negative he is not having significant shortness of breath chest x-ray is clear as is not having any respiratory symptoms. At this time I do not believe him to be having an acute exacerbation of CHF. His abdomen overall is relatively soft not significantly descended it is certainly not tender. X-ray does not show any acute process. Discussed with patient concerning findings on his EKG in regards to 80 block. He has not passed out had any syncopal episodes discussed case with cardiology who recommends outpatient follow-up. At this time I did offer patient further workup including CT of his abdomen however patient has been in the ER for a while he says he really is not tender he has home his pain nausea or vomiting in his abdomen I can follow-up as an outpatient as firs abdomen is needed. 5pm Dr. Palacios, cardiology has reviewed EKGs he states that patient likely does have blinking walk a which is new for him however persistent right bundle-branch block. At this time he is not bradycardic in has not had syncopal episodes and is overall not concerning at this time. It certainly is not why he is in the emergency department today. He can follow-up as an outpatient Discharge Plan Departure Patient Disposition: Home Clinical Impression: AV block, 2nd degree Abdominal pain Qualifiers: Abdominal location: generalized Qualified Code(s): R10.84 - Generalized abdominal pain Instructions: Acute Abdominal Pain, Heart Block -- Adult Activity Restrictions/Additional Instructions: *You have been diagnosed with abdominal pain and AV block *What to do: At this time ultrasound x-ray of your abdomen are within normal limits blood work is also reassuring. Her EKG does show abnormal rhythm. I have discussed with your lan specialist in [place], this is a new rhythm. I recommend he follow up with her lan specialist. *Continue to take medications as directed *Follow up with your primary care provider in 2-3 days *Return to ER if you should have passing out, chest pain, palpitations, vomiting, increasing abdominal pain or distension or any new, worsening or concerning symptoms Prescriptions: No Action ciprofloxacin HCl [Cipro] 500 mg tablet 500 mg PO BID Qty: 6 RF: 0 ciprofloxacin HCl 500 mg tablet 500 mg PO BID Qty: 14 RF: 0 Referrals: Checo Robles DO [Non-Staff] -
--- NOTE | 2020-06-21 16:13 | DI.RAD.S_ITS ---
PROCEDURE: XR ABDOMEN MIN 2V INDICATIONS: ab distention TECHNIQUE: 2 views of the abdomen were acquired. COMPARISON: None. FINDINGS: Surgical changes and devices: None. Bowel: No pneumoperitoneum. The bowel gas pattern is specific. There are scattered minimally prominent loops of small bowel with prominent areas of colonic stool. Soft tissues: No masses; visualized solid organ contours appear normal in size. No suspicious abdominal calcifications. Bones: No suspicious bony abnormalities. IMPRESSION: Nonspecific gas pattern with scattered areas of mildly prominent bowel with significant stool overall consistent with constipation. Developing ileus/partial small bowel obstruction cannot be excluded. Dictated by: Mary Lou Pimentel M.D. on 06/21/2020 at 16:51 Approved by: Mary Lou Pimentel M.D. on 06/21/2020 at 16:52
== END 2020-06-21 17:40 | disposition home or self-care (01) ==
PROVIDERS: Emergency Provider Emergency Medicine
DX: I44.1 Atrioventricular block, second degree (principal); R10.84 Generalized abdominal pain; R06.02 Shortness of breath
CPT/HCPCS: 36415; 71045; 74019; 76705; 80053; 82550; 82553; 83690; 83735; 83880; 84484; 85025; 85610; 85730; 93005; 93010; 99284

== ENCOUNTER → 2020-08-02 16:46 | Outpatient (CLI) | payer MEDICARE, BC, SELFPAY ==
[2020-08-02 17:59] LABS: BUN Creatinine Ratio 22.5 (6-22); Blood Urea Nitrogen 23 mg/dL (9-20); Calcium 10.1 mg/dL (8.4-10.2); Carbon Dioxide 28 mmol/L (22-32); Chloride 102 mmol/L (98-107); Estimated Glomerular Filt Rate > 60.0 mL/min (>60); Glucose 106 mg/dL (80-110); HEMOLYSIS < 15 (0-50); Potassium 3.9 mmol/L (3.4-5.1); Sodium 138 mmol/L (137-145)
[2020-08-02 18:07] LABS: NT-proBNP (BNP-Adult 18+) 367 pg/mL (<450)
== END ==
PROVIDERS: Referring Provider Physician Assistant; Visit Provider Physician Assistant
DX: R06.00 Dyspnea, unspecified (principal)
CPT/HCPCS: 36415; 80048; 83880